=== PATIENT | female | born 1945 ===

== ENCOUNTER 2019-07-12 08:28 | Outpatient (CLI) | payer MEDICARE, OTHER ==
[~2019-07-12 08:28] MED LIST: BUFFERED LIDOCAINE 10 ML SYRINGE ONE
--- NOTE | 2019-07-12 12:48 | Ultrasound Report ---
Reason: LT BREAST MASS Procedure Date: 07/12/2019 Accession Number: [id number] / [id number] Procedure: US - Biopsy Breast Core CPT Code: Final Report FULL RESULT: PROCEDURE: Ultrasound-guided needle biopsy left breast mass. CLINICAL DATA: Targeted mass measuring approximately 1 cm with irregular margins in the 5 o'clock axis of the left breast. Informed consent was obtained. Using standard aseptic technique, both 1% buffered lidocaine and Sensorcaine were injected into the left breast for local anesthesia. A small charlene was made in the skin with a #11 blade. A 12-gauge Veysoft vacuum-assisted device was used to obtain 5 specimens. A specialized biopsy marker clip was placed into the biopsy cavity under ultrasound guidance. The patient was taken to separate mammography machine and a two-view digital mammography was performed to verify the clip placement and any complications. The mammography showed expected clip positioning and postbiopsy changes. The wound was dressed and ice applied. The patient was observed for approximately 15 minutes, then was discharged from diagnostic imaging Department in good condition following instructions on wound care and obtaining biopsy results. The patient is scheduled to receive the biopsy results from the referring physician. The tissue was sent for histologic analysis. IMPRESSION: Ultrasound-guided biopsy of the left breast. AN ADDENDUM WILL BE MADE TO THIS REPORT WHEN PATHOLOGY IS REVIEWED TO ESTABLISH CONCORDANCE.
[2019-07-12] MEDS ORDERED: BUFFERED LIDOCAINE 10 ML SYRINGE IU ONE (14:01)
[2019-07-12] MEDS ORDERED: BUPIVACAINE 0.5%-EPI 1:200000 PF 10 ML VIAL SUBQ ONE (14:01)
== END 2019-07-12 08:29 | disposition home or self-care (01) ==
LOC: DI 08:28
PROVIDERS: ATTEND Surgery
DX: D24.2 Benign neoplasm of left breast (principal)
CPT/HCPCS: 19083

== ENCOUNTER 2020-01-31 07:55 | Outpatient (CLI) | payer MEDICARE, OTHER ==
--- NOTE | 2020-02-28 12:45 | Mammography Report ---
UNILATERAL LEFT DIGITAL DIAGNOSTIC MAMMOGRAM 3D/2D: 01/31/2020 CLINICAL: Patient returns for a 6 month follow up of the left breast. Post biopsy. Comparison is made to exams dated: 06/15/2019 mammogram, 05/07/2018 mammogram, 04/19/2018 mammogram, a nd 02/13/2017 mammogram - [facility]. The tissue of both breasts is heterogeneously dense. This may lower the sensitivity of mammography. There is an irregular equal density mass in the left breast at 4 o'clock in the retroareolar region. This is not significantly changed and correlates with prior ultrasound findings dated 06/15/2019 and the biopsy dated 07/12/2019. There is a biopsy clip associated with the mass. Pathology indicated benign intraductal papilloma. No surgical excision was performed. No other significant masses, calcifications, or other findings are seen in either breast. Stable pos t operative findings in the left breast from prior partial mastectomy. IMPRESSION: INCOMPLETE: NEEDS ADDITIONAL IMAGING EVALUATION The irregular, oblong equal density mass in the left breast is consistent with a biopsy proven papill saira lesion. Further evaluation is recommended by ultrasound as this high risk lesion was not surgica lly excised and currently being followed by imaging surveillance. The patient will be scheduled to re turn for her ultrasound evaluation. This exam was interpreted at Station ID: [id number]. NOTE: For mammograms, a report in lay terms will be sent to the patient. Approximately 15% of breast malignancies will not be visualized mammographically. In the management of a palpable breast mass, a negative mammogram must not discourage biopsy of a clinically suspicious lesion. Electronically Signed By: Teofilo Ayers M.D. aty/:01/31/2020 11:26:50 copy to: CECE ARMENDARIZ copy to: MIKE Snell LEAH, ph: [phone] copy to: DRU HERRERA [place], [facility], ph: [phone], fax: [phone] ACR BI-RADS Category 0: Incomplete 3340F PARENCHYMAL PATTERN: (D) - The breast(s) demonstrate(s) heterogeneously dense fibroglandular parenchy ma. BI-RADS CATEGORY: (0) - 0 Ultrasound [id number] Immediate follow-up LATERALITY: (L)
== END 2020-01-31 07:56 | disposition home or self-care (01) ==
LOC: DI 07:55
PROVIDERS: ATTEND Surgery
DX: N63.23 Unspecified lump in the left breast, lower outer quadrant (principal)
CPT/HCPCS: 77061; 77065; G0279

== ENCOUNTER 2020-02-14 09:17 | Outpatient (CLI) | payer MEDICARE, OTHER ==
--- NOTE | 2020-02-15 10:54 | Ultrasound Report ---
LIMITED ULTRASOUND OF LEFT BREAST: 02/14/2020 CLINICAL: Patient returns today to evaluate a density in the left breast. Comparison is made to exams dated: 01/31/2020 mammogram - [facility], 06/15/2019 ult rasound, 06/15/2019 mammogram, 06/22/2018 specimen, 06/22/2018 localization, and 05/07/2018 ultrasound biopsy - [facility]. Color flow and real-time ultrasound of the left breast 4-5 o'clock region were performed. Alba scal e images of the real-time examination were reviewed. There is a biopsy proven benign 1.1 cm x 8 cm x 1.1 cm oval intraductal mass in the left breast at 5 o'clock anterior depth 3 cm from the nipple. This oval intraductal mass is of mixed echogenicity wit h cystic and punctate echogenic components. Color flow imaging demonstrates that there is an adjacen t, but no internal vascularity. This abnormality is not significantly changed and correlates with m ammography findings. IMPRESSION: PROBABLY BENIGN The 1.1 cm x 8 cm x 1.1 cm oval intraductal mass in the left breast is biopsy proven to be a papillar y lesion and is considered a high risk benign lesion. Excision or imaging surveillance is recommende d. For imaging surveillance, a follow-up left mammogram and an ultrasound in 6 months is recommended to demonstrate stability. Findings and recommendations were conveyed to the patient at time of exam. This exam was interpreted at Station ID: [id number]. Electronically Signed By: Mary eubanks/:02/15/2020 10:40:57 Entry: - 02/15/2020 10:40:57 copy to: CECE ARMENDARIZ copy to: MIKE Snell LEAH, ph: [phone] copy to: DRU HERRERA [place], [facility], ph: [phone], fax: [phone] Ultrasound BI-RADS: 3 Probably benign BI-RADS CATEGORY: (3) - 3 Mammo and US [id number] 6 month follow-up LATERALITY: (L)
== END 2020-02-14 09:18 | disposition home or self-care (01) ==
LOC: DI 09:17
PROVIDERS: ATTEND Surgery
DX: D24.2 Benign neoplasm of left breast (principal)
CPT/HCPCS: 76642

== ENCOUNTER 2020-07-10 08:47 | Outpatient (CLI) | payer MEDICARE, OTHER ==
[2020-07-10] MEDS ORDERED: IOVERSOL 320 100 ML VIAL IVP ONE ×2 (09:03→11:55)
[2020-07-10] MEDS ORDERED: IOVERSOL 320 50 ML VIAL ONE (09:03)
[2020-07-10] MEDS ORDERED: IOVERSOL 320 50 ML VIAL PO ONE (11:55)
--- NOTE | 2020-07-10 17:51 | CT Report ---
PROCEDURE: Abdomen/Pelvis W INDICATIONS: METASTATIC BREAST CANCER STAGING CONTRAST: IV CONTRAST: Optiray 320 ml: 100 PO CONTRAST: Optiray 320 ml50 TECHNIQUE: After the administration of contrast, 5 mm thick sections acquired from the diaphragms to the sym physis. 5 mm thick coronal and sagittal reformats were acquired. For radiation dose reduction, the following was used: automated exposure control, adjustment of mA and/or kV according to patient size . COMPARISON: None. FINDINGS: Image quality: Excellent. ABDOMEN: Lung bases: Lung bases are clear considering reduced inspiratory volume. Heart size is normal. Solid organs: Liver and spleen are normal in size and enhancement. Gallbladder has been previously resected Biliary system is non dilated. Pancreas enhances normally. No adrenal nodules. Kidneys d emonstrate normal size and enhancement, without hydronephrosis. Peritoneum and bowel: Bowel loops demonstrate normal wall thickness and caliber. No free fluid or a ir. Nodes and vessels: No retroperitoneal or mesenteric adenopathy by size criteria. Aorta and inferior vena cava are normal in size. Miscellaneous: No ventral hernias. PELVIS: Genitourinary: Bladder wall thickness is normal. Miscellaneous: No inguinal hernias or adenopathy. Bones: No suspicious bony lesions. No vertebral body compression fractures. IMPRESSION: Prior cholecystectomy. No evidence of metastatic disease. Reviewed by: Tej Romero MD on 07/10/2020 5:49 PM PST Approved by: Tej Romero MD on 07/10/2020 5:49 PM PST Station ID: [id number]
--- NOTE | 2020-07-10 17:57 | CT Report ---
PROCEDURE: CHEST W INDICATIONS: METASTATIC BREAST CANCER STAGING CONTRAST: IV CONTRAST: Optiray 320 ml: 100 PO CONTRAST: *NO PO CONTRAST TECHNIQUE: After the administration of intravenous contrast, 5 mm thick sections acquired from the pulmonary api celso to the posterior costophrenic angles. 7 mm thick coronal MIP reformats were acquired. For radia tion dose reduction, the following was used: automated exposure control, adjustment of mA and/or kV according to patient size. COMPARISON: None. FINDINGS: Image quality: Excellent. Lungs and pleura: No acute air space opacities. No pleural effusions or pneumothorax. Central and peripheral airways are patent and normal in caliber. Mediastinum: Heart size is normal. No pericardial effusion. No mediastinal or hilar adenopathy by size criteria. Thoracic aorta and central pulmonary arteries are normal in size. Esophagus is kiara l in caliber. No hiatal hernia. Bones and chest wall: No suspicious bony lesions. No vertebral body compression fractures. No axil thomas or supraclavicular adenopathy by size criteria. Thyroid gland is not well seen. Note is made o f nodular soft tissue prominence at the lateral left breast, where additional evidence of breast carc inoma is present by what appears to be a set of lumpectomy surgical clips noted best seen centered on CT series 2 image 38. 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 Abdomen: Visualized upper abdominal solid organs appear normal. Upper abdominal bowel loops are nor mal in caliber. IMPRESSION: Nodular masses within the left breast appear present, adjacent to an area of clustered small surgical clips. It is unclear whether the nodular appearance is from "satellite lesions" or possibly related to postoperative change. Breast MRI scanning without and with contrast may be warranted for more accu rate assessment of that area. Alternatively, sonographic follow-up may be warranted. Through the visualized chest and abdomen included on this study no definite distant metastatic diseas e is found. Reviewed by: Tej Romero MD on 07/10/2020 5:55 PM PST Approved by: Tej Romero MD on 07/10/2020 5:55 PM PST Station ID: [id number]
--- NOTE | 2020-07-12 17:01 | Nuclear Medicine Report ---
PROCEDURE: Bone Whole Body INDICATIONS: METASTATIC BREAST CANCER STAGING RADIOPHARMACEUTICAL: 26.1 mCi Tc-99m MDP IV. TECHNIQUE: Delayed whole-body scintigrams were obtained approximately 3-4 hours after intravenous injection of r adiotracer. Anterior and posterior views were acquired from vertex to feet. Additional left and rig ht oblique views of the skull were obtained. COMPARISON: CT chest with contrast, 07/10/[address] abdomen and pelvis with contrast 07/10/2020. FINDINGS: There are foci of increased activity involving the lower thoracic spine (T10, T11 and T12) , left iliac bone, right humeral shaft, suspicious for metastasis. Intensely increased activity is no jessa in the left humeral head and neck. Increased activity at the sternomanubrial junction is likely d egenerative in nature. There are foci of increased activity in the lower cervical spine, thoracic spi ne and lumbar spine, indistinguishable from degenerative changes. Increased periventricular activity in shoulders bilaterally, knees bilaterally, ankles and feet bilaterally are consistent with degenera tive/arthritic changes. IMPRESSION: 1. There are of increased activity in the lower thoracic spine, left iliac bone, and right humeral sh aft, suspicious for osseous metastases. Recommend radiographic correlation. 2. Intense abnormal uptake in the left humeral head and neck may be traumatic in nature. Recommend cl inical and radiographic correlation. 3. Degenerative/arthritic changes as noted. Reviewed by: Santhosh Morel MD on 07/12/2020 4:59 PM PST Approved by: Santhosh Morel MD on 07/12/2020 4:59 PM PST Station ID: [id number]
== END 2020-07-10 08:48 | disposition home or self-care (01) ==
LOC: DI 08:47
PROVIDERS: ATTEND Internal Medicine Hematology & Oncology
DX: C50.919 Malignant neoplasm of unspecified site of unspecified female breast (principal); Z90.49 Acquired absence of other specified parts of digestive tract
CPT/HCPCS: 71260; 74177; Q9967; 78306

== ENCOUNTER 2020-12-04 08:46 | Outpatient (CLI) | payer MEDICARE, OTHER ==
--- NOTE | 2020-12-04 17:19 | Nuclear Medicine Report ---
PROCEDURE: Bone Whole Body INDICATIONS: METASTATIC BREAST CA RADIOPHARMACEUTICAL: 26.7 mCi Tc-99m MDP IV. TECHNIQUE: Delayed whole-body scintigrams were obtained approximately 3-4 hours after intravenous injection of r adiotracer. Anterior and posterior views were acquired from vertex to feet. Additional left and rig ht oblique views of the skull and cervical spine were obtained. COMPARISON: Bone scan, whole body, 07/10/2020. FINDINGS: Foci of increased uptake are again noted involving the lower thoracic spine (T11 and T12), left iliac bone and right humeral shaft, suspicious for metastases. There are foci of increased katrina articular activity involving shoulders bilaterally, left greater than right, knees bilaterally, ankle s and feet bilaterally, consistent with degenerative/arthritic changes. There are foci of increased a ctivity in the lower cervical spine, thoracic spine and lumbar spine, indistinguishable from degenera tive changes. IMPRESSION: Stable bone scan. Foci of increased uptake are again noted involving the lower thoracic spine (T11 and T12), left iliac bone and right humeral shaft, suspicious for metastases. Recommend ra diographic correlation. Reviewed by: Santhosh Morel MD on 12/04/2020 5:18 PM PDT Approved by: Santhosh Morel MD on 12/04/2020 5:18 PM PDT Station ID: [id number]
== END 2020-12-04 08:47 | disposition home or self-care (01) ==
LOC: DI 08:46
PROVIDERS: ATTEND Internal Medicine Hematology & Oncology
DX: R93.7 Abnormal findings on diagnostic imaging of other parts of musculoskeletal system (principal)
CPT/HCPCS: 78306

== ENCOUNTER 2021-01-01 11:01 | Outpatient (CLI) | payer MEDICARE, OTHER ==
--- NOTE | 2021-01-01 16:24 | CONSULTATION NOTE ---
Palliative Care Consultation - Referral Referring Provider: Dolores Garduno PA-C Time of Visit: 11:00 75 minutes Referral setting: [facility] [place] Referral Reason: Hot flashes/Arthalgias/Osteoarthritis/ Met Breast CA - Information Sources Records reviewed: Previous records reviewed History/Review of Systems obtained from: Patient Exam limitations: No limitations - History of Present Illness Brief History of Present Illness: This is a karan 75-year-old woman with recurrent breast cancer, cutaneous and bony mets. She is currently on anastrozole, with severe hot flashes and arthralgias, and Ibrance since 09/13/2020 with noted persistent fatigue. She does have known bony mets, with recent scan showing uptake in lower thoracic spine, left iliac bone, and right humerus noted to be consistent with stable metastatic disease. She is morbidly obese, exacerbating her underlying osteoarthritis issues particularly bilateral knee pain. She has persistent fatigue, experiences multiple rashes, and tries to integrate into her treatment plan supplemental alternative treatments. Patient was originally diagnosed with breast cancer in 2017, treated with lumpectomy, and had declined further radiation, chemo or endocrine therapy at that point in time. She did high-dose vitamin C therapy and mistletoe injections. She was diagnosed with recurrence actually through a cutaneous scalp lesion, by her geological technical officer, then established 07/13 with oncology at [facility]. She also has history of falls, with fractured shoulder on left 2018, and fractured shoulder 06/12 for which she is still receiving physical therapy. Patient presents actually with fairly high symptom burden, most problematic is her hot flashes, she rates them at 9 out of 10. They do occur 2-3 times a day, with severe discomfort and persistence. She has osteoarthritic and overall arthralgias and joint pain, she rates it a 4 out of 10, she has been taking Aleve 1 tab twice daily for several years, has not trialed anything else other than a few topicals. She has in the past benefited from cortisone shots bilaterally in her knees, and still has persistent pain from her broken shoulder on the right. Patient short-term goals are to improve her symptoms particularly hot flashes and pain, as well as integrate dietary changes and weight loss. She does understand the seriousness of her illness, she is very marifer oriented, and finds this helpful as far as coping. Palliative care meeting with patient to assist with pain and symptom management, advanced care planning, and establish rapport today. Medical/Surgical History - Past Medical History Cardiovascular: reports: Hypertension Respiratory: reports: None Neuro: None Endocrine/Autoimmune: reports: None GI: reports: None : reports: Incontinence, Other (herpes) HEENT: reports: Other (tinnitus) Psych: reports: None Musculoskeletal: reports: Osteoarthritis, Fatigue Derm: reports: Other (Met breast cutaneious; candidiasis) MRSA Hx?: No Social History - Living Situation Living arrangement: At home Living Situation: Alone Support System: Patient lives alone, she has multiple friends for support. She does have 4 children, and 6 grandchildren that she stays in contact with through [employer]/social media. She does like to go on road trips, unfortunately her most recent one got canceled.She is retired, she was a library paraprofessional for 21 years. Family History - Family History Family History: Mother: ( at 71), Cancer ( at 84), Father: , Parkinson's Disease (age 65), Brother: , Parkinson's Disease Medications/Allergies - Medications Home Medications: Ambulatory Orders Medication Instructions Recorded Confirmed Anastrozole 1 mg PO DAILY #90 tablet 12/11/20 01/02/21 Acetaminophen [Tylenol] 650 mg PO TID 01/02/21 01/02/21 Allertec 10 mg PO DAILY 01/02/21 Calcium Crb,Cit/D3/Min34/Marjorie 1 tab PO DAILY 01/02/21 01/02/21 [Citracal Plus Bone Density Tab] Cholecalciferol [Vitamin D3] 10,000 units PO DAILY MDD + K 20 01/02/21 01/02/21 mcg Community Mushrooms 2 cap PO DAILY 01/02/21 Magnesium Oxide [Magnesium] 120 mg PO DAILY 01/02/21 01/02/21 Melatonin/Pyridoxine [Melatonin 5 5 mg PO QPM 01/02/21 01/02/21 mg Tablet] Methylsulfonylmethane [MSM] 3 gm PO DAILY 01/02/21 01/02/21 N-Acetyl L-Cysteine 600 mg PO DAILY 01/02/21 Naproxen Sodium [Aleve] 220 mg PO BID 01/02/21 01/02/21 Palbociclib [Ibrance] 125 mg PO DAILY MDD 21 days on 7 01/02/21 01/02/21 off Venlafaxine ER [Effexor ER] 37.5 mg PO DAILY 01/02/21 01/02/21 Zinc Amino Acid Chelate [Zinc 50 mg PO DAILY 01/02/21 01/02/21 Chelated] - Allergies Allergies/Adverse Reactions: Allergies Allergy/AdvReac Type Severity Reaction Status Date / Time iodine Allergy Unknown Verified 10/26/20 09:59 Penicillins Allergy Unknown Verified 10/26/20 09:59 Sulfa (Sulfonamide Allergy Unknown Verified 10/26/20 09:59 Antibiotics) Review of Systems - Constitutional Constitutional: reports: Fatigue, Chills, Night sweats - Eyes Eyes: reports: Irritation, Vision loss - Ears, Nose & Throat Ears, Nose & Throat: reports: Tinnitus, Sore throat, Dry mouth - Cardiovascular Cardiovascular: reports: Edema, Exertional dyspnea, Decr. exercise tolerance. denies: Chest pain - Respiratory Respiratory: denies: SOB at rest - Gastrointestinal Gastrointestinal: reports: Change in bowel habits - Genitourinary Genitourinary: reports: Incontinence - Musculoskeletal Musculoskeletal: reports: Muscle pain, Back pain, Muscle aches, Stiffness, Limited range of motion, Muscle weakness, Joint pain, Joint swelling, Assistive devices (cane) - Integumentary Integumentary: reports: Rash (under pannus), Dryness, Nail changes, Hair changes (thinning) - Neurological Neurological: reports: General weakness, Headache, Numbness (left hand intermittent), Abnormal gait (related to pain in knees) - Psychiatric Psychiatric: denies: Depression, Anxiety - Endocrine Endocrine: denies: Diabetes type 2 - Hematologic/Lymphatic Hematologic/Lymph: denies: Anemia, Recurrent infections - All Other Systems All Other Systems: reports: Reviewed and negative Physical Exam - Vital Signs Pulse Rate: 63 Respiratory Rate: 18 Blood Pressure: 122/70 - Physical Exam General Appearance: positive: Alert, Mild distress (related to pain/hot flashes) Eyes Bilateral: positive: Normal inspection ENT: positive: No signs of dehydration Neck: positive: Trachea midline Cardiovascular: positive: Regular rate & rhythm Respiratory: positive: Breath sounds nml, Diminished in bases Abdomen: positive: Soft, Obese Skin: positive: Other (excoriation under pannus; scarring under breasts) Extremities: positive: Pedal edema (up to knees), Other (ataxic gait related to pain/arthritis) Neurologic/Psychiatric: positive: Oriented x3, Mood/affect nml, Flat affect Palliative Care - POLST Patient has POLST: No Pain: Location (left shoulder/ bilateral knee pain; multiple muscle/joint arthalgias worsened with anastrozole), Severity (4/10) Tiredness/Fatigue: Moderate (4-6) Drowsiness/Sedation: Mild (1-3) Nausea: None Anorexia: None Dyspnea: Mild (1-3) Depression: None Anxiety: None Feelings of wellbeing/Perceived Quality of Life: Poor, Worsening Sleep: Sleeps poorly, Variable sleep pattern Constipation: No Performance Status: Patient's activity is significantly limited by her bilateral knee pain, and high risk for falls. She is managing her ADLs, she is unable to really push herself with activity secondary to her pain. - Palliative Care Discussion: Patient does present with metastatic breast cancer, currently with fairly high symptom burden with her goals to focus on improving quality of life issues. Her belief system is such that she is trying to integrate both supplemental/naturopathic treatments with [facility]. She is trying to stay committed to continuing the anastrozole, but is hoping we can impact her hot flashes and discomfort to better be able to tolerate this. She reports she is without depression or anxiety, this is impacted by her marifer, she takes things as they, and is wanting to stay quite positive. Introduced the concept of advanced care planning, and will continue to move forward with this as we set up rapport and further define her goals. Results - Lab Results Lab results reviewed: Yes Lab and Imaging Results: Reviewed with patient to improve understanding Impression and Recommendations - Palliative Care Impression: This is a 75-year-old woman with recurrent breast cancer, with cutaneous and bony mets, currently on anastrozole and Ibrance. She does have moderate to high symptom burden, superimposed on chronic pain related to her osteoarthritis. Palliative care to provide support for pain and symptom management, advanced care planning, and anticipatory guidance. Recommendations/Counseling Done: 1. Hot flashes. Will initiate venlafaxine 37.5 mg extended release at bedtime, with goal to titrate to effect. Counseling provided regarding side effects, will check in a couple weeks for titration, goal is to decrease the intensity and frequency, has shown some effectiveness but will need some time to trial. Patient verbalizes understanding. 2. Rhinitis. Patient currently on Aller-bethel for her skin issues, having difficulty with dry nose and drainage, recommended nasal saline spray 2 times a day [id number]. 3. Acute on chronic pain. Patient currently on Aleve 220 mg twice daily, has been on this long-term. Patient has benefited from cortisone shots in the past, follow-up with oncologist with question if okay to proceed, received Answer back can proceed. We will go ahead in the meantime just trial some acetaminophen 650 mg 2-3 times a day, in addition to the Aleve. Also recommended topical CBD 2-3 times a day, she does have contact with vocational teacher or if other topical in the same category. We will add pregabalin in future if no improvement, this may also assist with management not only of her pain/arthralgias as well as hot flashes has been effective as the intervention. 4. Morbid obesity. Patient very aware if lost weight would help her knee pain, discussed different programs/apps, does not have access to computer or able to add apps to her phone. Did reach out for [facility] dietitian to meet with patient, she is also interested in anti-inflammatory diet as well as weight loss, recommended Mediterranean diet as a starting point as well as portion control. 5. Metastatic breast cancer. Patient currently on oral cancer agents, she is struggling with side effects, but is hoping to have better control so able better to tolerate. She is hoping for both quantity and quality of life extended given her diagnosis, discussed metastatic breast cancer is often treated long-term and currently she does not have any life-threatening metastatic disease to organs. Patient given her belief system also is integrating alternative treatments, she does report this person works with oncology patients, encouraged to make sure she understands what oral medication she is on to minimize side effects. 6. Excoriation under pannus. Patient does have fluctuating levels of candidiasis and groin, pannus and breast folds. Recommended interwick material for management of moisture and keep fungal count down. She is being treated by her geological technical officer, with triamcinolone and ketoconazole. 7. Advanced care planning. Patient short-term goals to improve her quality of life with diminished pain, improved hot flashes, and better understanding of her current treatment and disease process. We will continue to build rapport and work on advance care planning documents. 76 Including review of chart, labs, supporting documents from PCP and dermatology, [id number] physical exam in counseling for symptom management.minutes
== END 2021-01-01 11:02 | disposition home or self-care (01) ==
LOC: PC 11:01
PROVIDERS: ATTEND Nurse Practitioner Adult Health
DX: Z51.5 Encounter for palliative care (principal); T45.1X5A Adverse effect of antineoplastic and immunosuppressive drugs, initial encounter; R23.2 Flushing; J31.0 Chronic rhinitis; G89.29 Other chronic pain; E66.01 Morbid (severe) obesity due to excess calories; C50.919 Malignant neoplasm of unspecified site of unspecified female breast; C79.51 Secondary malignant neoplasm of bone; C79.2 Secondary malignant neoplasm of skin; S30.811A Abrasion of abdominal wall, initial encounter; Z79.899 Other long term (current) drug therapy
CPT/HCPCS: 99205

== ENCOUNTER 2021-01-25 13:10 | Outpatient (CLI) | payer MEDICARE, OTHER ==
--- NOTE | 2021-01-25 16:49 | CONSULTATION NOTE ---
Palliative Care Follow Up - Referral Referring Provider: Dolores Garduno PA-C Time of Visit: 1310 50 minutes Referral setting: [facility] Referral Reason: Hot flashes/Osteoarthritis/Met Breast CA/Goals of Care - Information Sources Records reviewed: Previous records reviewed History/Review of Systems obtained from: Patient Exam limitations: No limitations - History of Present Illness Update Brief HPI Update: This is a karan 75-year-old woman with recurrent breast cancer, with known cutaneous skull and bony mets. She is currently on as anastrozole, with hot flashes and arthralgias, which have improved with initiation of venlafaxine at 37.5 mg. She continues on Ibrance since 09/13/2020 with persistent fatigue, but continues to improve. She is morbidly obese and has recently experienced an exacerbation of her osteoarthritis issues particularly bilateral knee pain, she did get cortisone injections within the last week with much improvement and has been able to decrease her pain medication by 50% with taking only Aleve 220 mg in a.m. and acetaminophen 1 tab midday. She is feeling like she is doing somewhat better, she feels like she is making progress on her short-term goals, she is hoping for weight loss to improve her overall health and has met with dietitian. She does understand the seriousness of her illness, she is marifer oriented and this helps with her coping. Palliative care continue to provide support for pain and symptom management as well as advanced care planning. Past Medical History: Original diagnosis of breast cancer in 2016, treated with lumpectomy, had declined radiation, chemo or endocrine therapy at that time did high-dose vitamin C and mistletoe injections. Her recurrence was diagnosed with a cutaneous scalp lesion by her boiling house hand, 07/13. History of falls, with fractured shoulder on left 2018 and fractured shoulder 06/12. Hypertension, mi ld incontinence, history of herpes, tinnitus, osteoarthritis, and candidiasis. Social History - Living Situation Living arrangement: At home Living Situation: Alone Medications/Allergies - Medications Home Medications: Ambulatory Orders Medication Instructions Recorded Confirmed Anastrozole 1 mg PO DAILY #90 tablet 12/11/20 01/25/21 Acetaminophen [Tylenol] 650 mg PO DAILY 01/02/21 01/25/21 Allertec 10 mg PO DAILY 01/02/21 01/25/21 Calcium Crb,Cit/D3/Min34/Marjorie 1 tab PO DAILY 01/02/21 01/25/21 [Citracal Plus Bone Density Tab] Cholecalciferol [Vitamin D3] 10,000 units PO DAILY MDD + K 20 01/02/21 01/25/21 mcg Community Mushrooms 2 cap PO DAILY 01/02/21 01/25/21 Magnesium Oxide [Magnesium] 120 mg PO DAILY 01/02/21 01/25/21 Melatonin/Pyridoxine [Melatonin 5 5 mg PO QPM 01/02/21 01/25/21 mg Tablet] Methylsulfonylmethane [MSM] 3 gm PO DAILY 01/02/21 01/25/21 N-Acetyl L-Cysteine 600 mg PO DAILY 01/02/21 01/25/21 Naproxen Sodium [Aleve] 220 mg PO DAILY 01/02/21 01/25/21 Palbociclib [Ibrance] 125 mg PO DAILY MDD 21 days on 7 01/02/21 01/25/21 off Venlafaxine ER [Effexor ER] 37.5 mg PO DAILY 01/02/21 01/25/21 Zinc Amino Acid Chelate [Zinc 50 mg PO DAILY 01/02/21 01/25/21 Chelated] - Allergies Allergies/Adverse Reactions: Allergies Allergy/AdvReac Type Severity Reaction Status Date / Time iodine Allergy Unknown Verified 01/04/21 11:11 Penicillins Allergy Unknown Verified 01/04/21 11:11 Sulfa (Sulfonamide Allergy Unknown Verified 01/04/21 11:11 Antibiotics) Review of Systems - Constitutional Constitutional: reports: Fatigue, Night sweats (improved), Weight stable - Eyes Eyes: reports: Irritation, Vision loss - Ears, Nose & Throat Ears, Nose & Throat: reports: Tinnitus, Dry mouth - Cardiovascular Cardiovascular: reports: Exertional dyspnea, Decr. exercise tolerance. denies: Chest pain - Gastrointestinal Gastrointestinal: reports: Good appetite. denies: Nausea - Genitourinary Genitourinary: reports: Incontinence - Musculoskeletal Musculoskeletal: reports: Muscle pain, Back pain, Muscle aches, Stiffness, Limited range of motion, Muscle weakness, Joint pain, Joint swelling - Integumentary Integumentary: reports: Rash (under pannus fluctuates), Dryness, Nail changes, Hair changes (thinning) - Neurological Neurological: reports: General weakness, Headache, Numbness (left hand intermittent), Abnormal gait (related to pain in knees) - Psychiatric Psychiatric: denies: Depression, Anxiety - Hematologic/Lymphatic Hematologic/Lymph: denies: Anemia, Recurrent infections - All Other Systems All Other Systems: reports: Reviewed and negative Physical Exam - Physical Exam General Appearance: positive: Alert Eyes Bilateral: positive: Normal inspection ENT: positive: No signs of dehydration Neck: positive: Trachea midline Cardiovascular: positive: Regular rate & rhythm Respiratory: positive: Breath sounds nml, Diminished in bases Abdomen: positive: Soft, Obese Extremities: positive: Other (ataxic gait related to pain/arthritis) Neurologic/Psychiatric: positive: Oriented x3, Mood/affect nml, Flat affect Palliative Care - POLST Patient has POLST: Yes POLST Status: DNR (requested bring in to review and update) Pain: Pain improved, Severity (3/10 bilateral knees) Tiredness/Fatigue: Moderate (4-6) Drowsiness/Sedation: None Anorexia: None Dyspnea: Mild (1-3) Depression: None Anxiety: None Feelings of wellbeing/Perceived Quality of Life: Good, Acceptable, Improved Sleep: Sleep improved Constipation: Yes, Managed Performance Status: Patient with improved ambulatory status, with bilateral knee injections. She is able to ambulate with a good out the pain. She is able to attend her ADLs. She does need to pace her activity related to managing her fatigue. - Palliative Care Discussion: Patient is feeling better overall, is pleased with the improvement of her hot flashes. She is also encouraged with improvement of her knee pain. She is planning for family reunion this summer in February, is looking forward to this. Clay trinidad denies being concerned or worried, did answer questions regarding her metastatic breast cancer as best we knew. She is getting a CT scan today. She will be meeting with oncology next week. She is quite marifer-based, does not want to get anxious for "nothing". She reports she does have some advance care planning documents, including a POLST with DNR. It has been several years since this is been updated, requested that she bring it in and we can review and update with next visit. Results - Lab Results Lab results reviewed: Yes Lab and Imaging Results: Reviewed with patient per request. Impression and Recommendations - Palliative Care Impression: This is a karan 75-year-old woman with recurrent breast cancer, with cutaneous and bony mets currently on anastrozole and Ibrance. She has had improved symptom burden, chronic pain related to her osteoarthritis is improved. Palliative care to provide support for pain and symptom management, advanced care planning and anticipatory guidance. Recommendations/Counseling Done: 1. Hot flashes. Patient has done well on venlafaxine 37.5 mg extended release at bedtime, have spoken to her twice regarding ability to increase for further effect. She reports it has improved by 50%. At this point in time she would like to wait prior to further titration. 2. Acute on chronic pain. Patient did get her cortisone shots with much improvement of her pain, has been able to decrease her pain medications to Aleve 1 tab in the a.m., and when dosing of acetaminophen midday. She is able to ambulate without cane, and is pleased with her progress. 3. Morbid obesity. Patient has expressed willingness and goals to lose weight, she did meet with a dietitian. She has not initiated any dietary changes yet, but was encouraged to continue with her plan. 4. Metastatic breast cancer. Patient currently on oral agents, does feel like she is settling in and better able to tolerate. She is continuing to integrate alternative treatments as well, will continue to monitor through oncology. 7. Advanced care planning. Patient does have a POLST with DNR, she has not sure what else is included on this, recommended she bring in and we revisit as well as her DPOA and healthcare directives. Counseling provided regarding hoping for the best, particularly in the context of her limited disease to bony mets and cutaneous, she does have follow-up with dermatology as well. We will plan to see her with next visit, or she can call for as needed visits as well. 60 minutes total with review of oncology notes, labs, [id number] with physical exam and counseling as well as anticipatory guidance.
== END 2021-01-25 13:11 | disposition home or self-care (01) ==
LOC: PC 13:10
PROVIDERS: ATTEND Nurse Practitioner Adult Health
DX: Z51.5 Encounter for palliative care (principal); M25.50 Pain in unspecified joint; T45.1X5A Adverse effect of antineoplastic and immunosuppressive drugs, initial encounter; R23.2 Flushing; E66.01 Morbid (severe) obesity due to excess calories; C50.919 Malignant neoplasm of unspecified site of unspecified female breast; C79.51 Secondary malignant neoplasm of bone; M19.91 Primary osteoarthritis, unspecified site; C79.2 Secondary malignant neoplasm of skin; Z66 Do not resuscitate
CPT/HCPCS: 99215

== ENCOUNTER 2021-04-26 09:15 | Outpatient (CLI) | payer MEDICARE, OTHER ==
--- NOTE | 2021-04-26 13:07 | CONSULTATION NOTE ---
Palliative Care Follow Up - Referral Referring Provider: Dolores Garduno PA-C Time of Visit: 0915 45 minutes Referral setting[place] [facility] [place] Reason: Anxiety/Arthalgias/Met Breast CA with bones - Information Sources Records reviewed: Previous records reviewed History/Review of Systems obtained from: Patient Exam limitations: No limitations (though does describe brain fog) - History of Present Illness Update Brief HPI Update: This is a karan 75-year-old woman with recurrent breast cancer, with known cutaneous skull and bone mets. She recently had CT scans, that showed stable disease. Patient reports is having increased toxicities from treatment, with worsening fatigue, arthralgias, and brain fog. She feels at this point it is tolerable, but does find it impacting her quality of life. Patient had discontinued venlafaxine, just because she does not "like pills". The patient had a notable response originally for her report both with her mood and with her hot flashes. She has had return of sweats, chills and feeling cold. She does not want to trial again. Her biggest issue is her arthralgias, most of her pain is intense in her knees bilaterally. She also has discomfort in her shoulders, patient has had fractures in both. She rates her pain a 6 out of 10, worse with weightbearing and walking. She has been more sedentary with her increasing pain. She does feel like her quality of life is significantly impacted, particularly by the fatigue. She does find herself resting with any kind of activity, and easily gets breathless. She did have her family reunion, had all 4 kids visiting, found this really quite karan. She forgot to bring in her POLST. She has designated her daughter Jailene Conti [phone] as her DPOA for medical decision making if needed. Patient is quite marifer oriented, this helps with her coping. She does understand the seriousness of her illness, it is hoping for both quality and quantity of life. Past Medical History: Original diagnosis of breast cancer 2016, treated with lumpectomy, declined radiation/chemo/endocrine therapy at that time. Did natural pathic approach with high-dose vitamin C and mistletoe injections. Her recurrence was diagnosed with a cutaneous scalp lesion by senior network security architect 07/13. She has history of falls with fracture on the left 2018 shoulder and fracture on the right 06/12 shoulder. Hypertension, mild incontinence, history of herpes, tinnitus, osteoarthritis, and candidiasis with skin rashes. Social History - Living Situation Living arrangement: At home Living Situation: Alone Support System: Patient lives at home alone, her daughter lives in [place]. She has supportive friends in the community. She is a retired personal injury litigation paralegal for 21 years. Medications/Allergies - Medications Home Medications: Ambulatory Orders Medication Instructions Recorded Confirmed Anastrozole 1 mg PO DAILY #90 tablet 12/11/20 04/26/21 Acetaminophen [Tylenol] 650 mg PO DAILY 01/02/21 04/26/21 Allertec 10 mg PO UD 01/02/21 04/26/21 Calcium Crb,Cit/D3/Min34/Marjorie 1 tab PO DAILY 01/02/21 04/26/21 [Citracal Plus Bone Density Tab] Cholecalciferol [Vitamin D3] 10,000 units PO DAILY MDD + K 01/02/21 04/26/21 mcg ClearStream Mushrooms 2 cap PO DAILY 01/02/21 04/26/21 Magnesium Oxide [Magnesium] 120 mg PO DAILY 01/02/21 04/26/21 Melatonin/Pyridoxine [Melatonin 5 5 mg PO QPM 01/02/21 04/26/21 mg Tablet] Methylsulfonylmethane [MSM] 3 gm PO DAILY 01/02/21 04/26/21 N-Acetyl L-Cysteine 600 mg PO DAILY 01/02/21 04/26/21 Naproxen Sodium [Aleve] 220 mg PO DAILY 01/02/21 04/26/21 Palbociclib [Ibrance] 125 mg PO DAILY MDD 21 days on 7 01/02/21 04/26/21 off Zinc Amino Acid Chelate [Zinc 50 mg PO DAILY 01/02/21 04/26/21 Chelated] - Allergies Allergies/Adverse Reactions: Allergies Allergy/AdvReac Type Severity Reaction Status Date / Time iodine Allergy Unknown Verified 03/29/21 15:50 Penicillins Allergy Unknown Verified 03/29/21 15:50 Sulfa (Sulfonamide Allergy Unknown Verified 03/29/21 15:50 Antibiotics) Review of Systems - Constitutional Constitutional: reports: Fatigue (worsening; very incapacitating last few days of cycle), Night sweats (recurrent with discontinuation of venlafaxine), Weight gain - Eyes Eyes: reports: Irritation, Vision loss - Ears, Nose & Throat Ears, Nose & Throat: reports: Tinnitus, Dry mouth - Cardiovascular Cardiovascular: reports: Exertional dyspnea, Decr. exercise tolerance. denies: Chest pain - Respiratory Respiratory: reports: SOB at rest (4/10), SOB with exertion - Gastrointestinal Gastrointestinal: reports: Constipation, Good appetite. denies: Nausea - Genitourinary Genitourinary: reports: Incontinence - Musculoskeletal Musculoskeletal: reports: Muscle pain, Back pain, Muscle aches, Stiffness, Limited range of motion, Muscle weakness, Joint pain, Joint swelling - Integumentary Integumentary: reports: Rash (under pannus and breast fluctuates), Dryness, Nail changes, Hair changes (thinning) - Neurological Neurological: reports: General weakness, Headache, Numbness (left hand intermittent), Abnormal gait (related to pain in knees) - All Other Systems All Other Systems: reports: Reviewed and negative Physical Exam - Physical Exam General Appearance: positive: Alert Eyes Bilateral: positive: Normal inspection ENT: positive: No signs of dehydration Neck: positive: Trachea midline Cardiovascular: positive: Regular rate & rhythm Respiratory: positive: Breath sounds nml, Diminished in bases Abdomen: positive: Soft, Obese Skin: positive: Pallor, Dryness Extremities: positive: Other (ataxic gait related to pain/arthritis) Neurologic/Psychiatric: positive: Oriented x3, Mood/affect nml, Flat affect Palliative Care - POLST Patient has POLST: No Pain: Pain worsening, Location (bilateral knee pain; bilateral shoulder and back pain;) Tiredness/Fatigue: Moderate (4-6) Drowsiness/Sedation: Moderate (4-6) Nausea: Mild (1-3) Anorexia: None Dyspnea: Moderate (4-6) Depression: None Anxiety: None Feelings of wellbeing/Perceived Quality of Life: Fair, Worsening Sleep: Variable sleep pattern Constipation: Managed Performance Status: Patient's functional status is impacted significantly both by her fatigue as well as her pain. She is managing her ADLs. She was quite pleased her children on her visit helped her with some of her reagent tender and maintenance. - Palliative Care Discussion: Patient is describing brain fog, finds this quite frustrating. With name finding. She feels overall her quality of life is declining, attributes this both to her pain and fatigue. She is still trying to do things that bring her jailene, road trips, she had a family reunion, spending time with friends. She had forgotten to bring her POLST, did provide her a new form but wanted to discuss with her daughter first before we complete. Defies her daughter as her medical DURABLE POWER OF PASTRY BAKER, has not furnished me paperwork with this yet. Will provide her if needed. Patient does have a "vial of life" in her fridge. She has her friend Lori who helps her with her appointments, to be able to hear the information as well. She operates from a place of marifer, and accepting what is. She also though has trouble taking pills in the context of not consistent with her healthcare belief model. She does have multiple supplements, recommended she follow-up with her chief passenger ship steward/stewardess to review particularly in the context of her worsening pain. Results - Lab Results Lab results reviewed: Yes Impression and Recommendations - Palliative Care Impression: This is a karan 75-year-old woman with recurrent breast cancer, with cutaneous and bony mets, currently on anastrozole and Ibrance. She continues with chronic pain related to her osteoarthritis, as well as worsening arthralgias attributed most likely to side effects of her medication. She is also experiencing cumulative toxicities of fatigue, and what she describes as "brain fog". Initiated conversation in follow-up for advanced care planning, introduced POLST. Palliative care to meet with patient with next MD visit, to follow-up on advanced care planning and pain management. Recommendations/Counseling Done: 1. Arthralgias. Patient currently using intermittent acetaminophen and Aleve. Patient interested in more natural supplements, does not want any opioid pain reliever. Discussed topicals including Salonpas 4%, Biofreeze, and instructions on patient instructed to call if pain relief not acceptable, and can introduce low dose opioid for relief to improve quality of life. 2. Fatigue. This is multifactorial, patient with worsening fatigue most likely attributed to her cumulative toxicities of her Ibrance. Patient is staying hydrated, limited activity though given her pain and mobility issues, is trying to pace herself and balance her pain and activity. 3. Advanced care planning. Introduced the POLST, she she does have one filled out at home, forgot to bring in. Will also need to get a copy of her DPOA for her daughter Jailene. Unclear if needs further documentation. Forms provided with brief explanation, will follow up at next visit. 45 minutes with review of oncology records, labs, scans, [id number] for counseling for pain and symptom management, and advanced care planning.
== END 2021-04-26 09:16 | disposition home or self-care (01) ==
LOC: PC 09:15
PROVIDERS: ATTEND Nurse Practitioner Adult Health
DX: Z51.5 Encounter for palliative care (principal); C50.919 Malignant neoplasm of unspecified site of unspecified female breast; C79.51 Secondary malignant neoplasm of bone; F41.9 Anxiety disorder, unspecified; M25.50 Pain in unspecified joint; R32 Unspecified urinary incontinence; Z79.899 Other long term (current) drug therapy; R53.83 Other fatigue; Z91.81 History of falling
CPT/HCPCS: 99215

== ENCOUNTER 2021-05-24 15:02 | Outpatient (CLI) | payer MEDICARE, OTHER | END 2021-05-24 15:03 | disposition home or self-care (01) | LOC: PC 15:02 | PROVIDERS: ATTEND Nurse Practitioner Adult Health | DX: Z51.5 Encounter for palliative care (principal); M17.0 Bilateral primary osteoarthritis of knee; G89.29 Other chronic pain; T45.1X5A Adverse effect of antineoplastic and immunosuppressive drugs, initial encounter; R53.83 Other fatigue; C50.919 Malignant neoplasm of unspecified site of unspecified female breast; C79.51 Secondary malignant neoplasm of bone; C79.2 Secondary malignant neoplasm of skin; Z79.899 Other long term (current) drug therapy; Z66 Do not resuscitate | CPT/HCPCS: 99215 ==

== ENCOUNTER 2021-06-19 08:48 | Outpatient (CLI) | payer MEDICARE, OTHER ==
[2021-06-19 09:29] LABS: BASOPHILS # (AUTO) 0.1 10^3/uL (0.0-0.1); BASOPHILS % (AUTO) 1.6 %; EOSINOPHILS % (AUTO) 1.1 %; HCT - HEMATOCRIT 40.5 % (37.0-47.0); HGB - HEMOGLOBIN 13.2 g/dL (12.0-16.0); LYMPHOCYTES # (AUTO) 1.1 10^3/uL (1.5-3.5); LYMPHOCYTES % (AUTO) 30.2 %; MEAN CORPUSCULAR HEMOGLOBIN 32.8 pg (27.0-31.0); MEAN CORPUSCULAR HGB CONC 32.6 g/dL (32.0-36.0); MEAN CORPUSCULAR VOLUME 100.7 fL (81.0-99.0); MEAN PLATELET VOLUME 10.1 fL (7.9-10.8); MONOCYTES # (AUTO) 0.2 10^3/uL (0.0-1.0); MONOCYTES % (AUTO) 4.1 %; NEUTROPHILS # (AUTO) 2.3 10^3/uL (1.5-6.6); NEUTROPHILS % (AUTO) 62.5 %; PLT - PLATELET COUNT 163 10^3/uL (130-450); RED BLOOD COUNT 4.02 10^6/uL (4.20-5.40); RED CELL DISTRIBUTION WIDTH 14.5 % (12.0-15.0); WHITE BLOOD COUNT 3.7 x10^3/uL (4.8-10.8)
[2021-06-19 09:46] LABS: ALBUMIN 3.8 g/dL (3.2-5.5); ALBUMIN/GLOBULIN RATIO 1.4 (1.0-2.2); BILIRUBIN,DIRECT 0.1 mg/dL (0.1-0.5); BILIRUBIN,INDIRECT 0.7 mg/dL; BILIRUBIN,TOTAL 0.8 mg/dL (0.2-1.0); CALCIUM 8.6 mg/dL (8.5-10.3); CREATININE 0.7 mg/dL (0.4-1.0); POTASSIUM 3.8 mmol/L (3.5-5.0); TOTAL PROTEIN 6.6 g/dL (6.7-8.2)
--- NOTE | 2021-06-27 10:58 | Nuclear Medicine Report ---
PROCEDURE: Bone Whole Body INDICATIONS: METASTATIC BREAST CA RADIOPHARMACEUTICAL: 23.6 mCi Tc-99m MDP IV. TECHNIQUE: Delayed whole-body scintigrams were obtained approximately 3-4 hours after intravenous injection of r adiotracer. Anterior and posterior views were acquired from vertex to feet. Additional left and rig ht oblique views of the skull and cervical spine were obtained. COMPARISON: Whole-body bone scan, 12/04/2020 and 07/10/2020. CT chest with contrast, 04/19/2021. CT abd omen pelvis with contrast 04/19/2021. FINDINGS: There is a focus of increased uptake in right side of T12, correlating with a sclerotic vandana ne lesion seen on the comparison CT, consistent with osseous metastasis. Low level increased uptake i s seen in the left T11-T12 area, correlating with a large degenerative osteophyte seen on the compari son CT, compatible with degenerative change. Mildly increase activity in the left iliac bone correlat es with a sclerotic lesion seen on the comparison CT, consistent with metastasis. Again noted is foc al increased activity in the right humeral shaft, highly suspicious for metastases. Overall, suspicio us bony lesions are unchanged. There are foci of increased periarticular activity involving shoulders bilaterally, knees bilaterally , ankles and feet bilaterally, consistent with degenerative/arthritic changes. Mild scoliosis in lumb ar spine. There are foci of increased activity in the lower cervical spine, thoracic spine and lumbar spine, indistinguishable from degenerative changes. IMPRESSION: Stable bone scan. There are persistent bony lesions involving the T12, left iliac bone an d right humeral shaft, compatible with metastases. Reviewed by: Santhosh Morel MD on 06/27/2021 10:57 AM PDT Approved by: Santhosh Morel MD on 06/27/2021 10:57 AM PDT Station ID: [id number]
== END 2021-06-19 08:49 | disposition home or self-care (01) ==
LOC: DI 08:48
PROVIDERS: ATTEND Internal Medicine Hematology & Oncology
DX: C79.51 Secondary malignant neoplasm of bone (principal); C50.912 Malignant neoplasm of unspecified site of left female breast; N95.1 Menopausal and female climacteric states; M19.91 Primary osteoarthritis, unspecified site; R93.7 Abnormal findings on diagnostic imaging of other parts of musculoskeletal system
CPT/HCPCS: 36415; 78306; 80053; 82247; 82248; 85025; A9503

== ENCOUNTER 2021-08-08 14:36 | Outpatient (CLI) | payer MEDICARE, OTHER ==
--- NOTE | 2021-08-08 17:29 | Ultrasound Report ---
PROCEDURE: Retroperitoneal INDICATIONS: KIDNEY MASS TECHNIQUE: Real-time scanning was performed of the retroperitoneal organs, with image documentation. COMPARISON: CT of the abdomen dated 07/12/2021 FINDINGS: Kidneys: Kidneys are normal in size. Right kidney measures 12.5 cm long; left kidney measures 11.3 cm long. Right renal cortical thickness is 1.29 cm; left renal cortical thickness is 1.33 cm. No so lid masses, hydronephrosis, or nephrolithiasis. A right renal mass in the medial midpole measures 20 .4 x 2.2 x 3.1 cm and demonstrates vascularity. A right parapelvic cyst measures 1.6 x 1.2 x 1.1 cm. Multiple left parapelvic cysts are seen with the largest measuring 2.1 x 1.4 x 1.3 cm. Bladder: Prevoid volume is 160 cc's. Post void volume is 0 cc. Bilateral ureteral jets are present. IMPRESSION: Possible solid mass described on prior CT on 07/12/2021 is confirmed with ultrasound an d demonstrates peripheral vascularity. Findings are highly suspicious for renal neoplasm. Given confi rmatory findings with ultrasound, consider renal MRI. Reviewed by: Cam Solano on 08/08/2021 5:28 PM PST Approved by: Cam Solano on 08/08/2021 5:28 PM PST Station ID: [id number]
== END 2021-08-08 14:37 | disposition home or self-care (01) ==
LOC: DI 14:36
PROVIDERS: ATTEND Internal Medicine Hematology & Oncology
DX: C50.912 Malignant neoplasm of unspecified site of left female breast (principal); C79.2 Secondary malignant neoplasm of skin; C79.51 Secondary malignant neoplasm of bone; N28.89 Other specified disorders of kidney and ureter

== ENCOUNTER 2021-08-26 13:00 | Outpatient (CLI) | payer MEDICARE, OTHER ==
--- NOTE | 2021-08-26 17:25 | MRI Report ---
PROCEDURE: Abdomen W/WO INDICATIONS: HX BREAST CA, ABN US CONTRAST: IV CONTRAST: Gadavist ml: 11 TECHNIQUE: Coronal ultra fast SE, axial 2D spoiled GE in- and [id number]; axial breath-hold T2 fast SE. Dynam ic axial ultra fast GE during the administration of contrast; post-contrast coronal ultra fast GE or 2D spoiled GE with fat saturation from the hepatic dome to the iliac crests. Optional diffusion weig hted imaging and ADC may be performed. COMPARISON: Ultrasound 08/08/[address] abdomen pelvis 07/12/2021, and 07/10/2020 FINDINGS: Image quality: Adequate, however there is motion on most sequences.. Lung bases: No basal pleural effusions. Heart size is normal. Solid organs: Mild signal drop in the liver on T1 out of phase imaging. Liver and spleen are normal in size and enhancement. Gallbladder is absent. Biliary system is non dilated. Pancreas is normal in morphology. No adrenal nodules. 2.6 x 2.6 x 2.7 cm heterogeneous encapsulated corticomedullary mass arises medially in the midpole of the right kidney and demonstrates arterial enhancement without washout. There are simple parapelvic cysts scattered elsewhere in the collecting system of each kidney. No hydronephrosis. Nodes and vessels: No retroperitoneal or mesenteric adenopathy by size criteria. Aorta and inferior vena cava are normal in size. Bowel and peritoneum: Unenhanced bowel loops are normal in caliber. No free fluid. Bones and soft tissues: No ventral hernias. There is a rounded 2.3 cm vertebral body lesion with T1 and T2 hypointensity in T12. It demonstrates enhancement postcontrast IMPRESSION: 1. 2.7 cm heterogeneous enhancing renal lesion suspicious for renal cell carcinoma. Given its indolen t course, oncocytoma is also possible. Metastatic disease much less likely given lack of significant progression. Urology consult is recommended. 2. No definite collecting system involvement or adenopathy. 3. Redemonstrated, enhancing sclerotic bone lesion in T12. This is new since the CT 07/10/2020. This is consistent with metastatic disease, confirmed with recent bone scan, and may be secondary to breas t cancer, less likely metastatic renal cell carcinoma. 4. Mild hepatic steatosis. Reviewed by: Mary Quijano MD on 08/26/2021 5:24 PM PST Approved by: Mary Quijano MD on 08/26/2021 5:24 PM [facility] Station ID: [id number]
[2021-08-27] MEDS ORDERED: GADOBUTROL 15 MMOL/15 ML VIAL IVP ONE (07:55)
== END 2021-08-26 13:01 | disposition home or self-care (01) ==
LOC: DI 13:00
PROVIDERS: ATTEND Internal Medicine Hematology & Oncology
DX: N28.89 Other specified disorders of kidney and ureter (principal); M89.9 Disorder of bone, unspecified; K76.0 Fatty (change of) liver, not elsewhere classified; C50.919 Malignant neoplasm of unspecified site of unspecified female breast
CPT/HCPCS: 74183; A9585

== ENCOUNTER 2021-09-06 14:06 | Outpatient (CLI) | payer MEDICARE, OTHER ==
--- NOTE | 2021-09-06 20:52 | CONSULTATION NOTE ---
Palliative Care Follow Up - Referral Referring Provider: Dolores Garduno PA-C Time of Visit: 1230 45 minutes Referral setting: MAC Referral Reason: Met Breast CA/Bilat knee pain/anxiety - Information Sources Records reviewed: Previous records reviewed History/Review of Systems obtained from: Patient, Friend (friend Lori who assists with appointments present) Exam limitations: Clinical condition (mild STM) - History of Present Illness Update Brief HPI Update: This is a 76-year-old woman with recurrent metastatic breast cancer, known cutaneous metastases, and bony mets involving the left iliac, right humeral, T11 and T12. She is currently on Ibrance and anastrozole. She has been off Ibrance since 08/18 in preparation for her knee surgery, unfortunately this may be delayed secondary to the increase in COVID numbers. Unfortunately in her scanning, they found a right kidney mass on the CT, it was a 2.6 cm mass, with follow-up ultrasound and urgent referral to urology. Pending plan regarding this. Patient's biggest quality of life issue has been her bilateral knee pain, she is doing very well in preparation for her surgery. She has lost 17 pounds, was 237.6 as of Thursday. She is going to get her left knee done first, has a plan for this, with friends staying for a couple nights, and then her son and friend checking on her regularly. She has been doing rehab, and ambulating 5-7 times a day of 8 minutes. She is feeling quite positive overall, she does use 2 canes for balance and intermittently with a walker. She reports her fatigue is better off of the Ibrance, so is feeling pretty positive overall though anxious about pending surgery being delayed. She has been using the hydrocodone 5 mg / 325 mg anywhere from 1/2-1 tab up to 3 times daily with good response. She is currently off some of her supplements pending surgery. She is not having trouble with constipation nor sedation. She has not had any further recurrent UTI symptoms. Patient continues with a karan attitude, she has a strong marifer, and continues to move forward with her plans even if they are delayed for knee surgeries. Past Medical History: Original breast cancer 2017, to lumpectomy, declined radiation/chemo/endocrine at the time. Did naturopathic approach with high-dose vitamin C and mistletoe injections. Recurrence of diagnosis was with Cutaneous scalp lesion 2017. She does have a history of falls with fracture of left shoulder 2018 and fracture of right shoulder 06/12. Social History - Living Situation Living arrangement: At home Living Situation: Alone Support System: Patient lives alone in [place], she does have multilevel house but is able to stay on a flat level. She has 4 children, she has a new grandbaby expected in September, is hoping to get well enough to travel again. She is retired. Educated for 21 years, her marifer and marifer community are very important to her. She has many supportive friends. Medications/Allergies - Medications Home Medications: Ambulatory Orders Medication Instructions Recorded Confirmed Anastrozole 1 mg PO DAILY #90 tablet 12/11/20 09/06/21 Acetaminophen [Tylenol] 650 mg PO Q6HR PRN 01/02/21 09/06/21 Allertec 10 mg PO UD 01/02/21 09/06/21 Calcium Crb,Cit/D3/Min34/Marjorie 1 tab PO DAILY 01/02/21 09/06/21 [Citracal Plus Bone Density Tab] Cholecalciferol [Vitamin D3] 10,000 units PO DAILY MDD + K 20 01/02/21 09/06/21 mcg Community Mushrooms 2 cap PO DAILY MDD hold for surgery 01/02/21 09/06/21 Magnesium Oxide [Magnesium] 120 mg PO DAILY 01/02/21 09/06/21 Melatonin/Pyridoxine [Melatonin 5 5 mg PO QPM 01/02/21 09/06/21 mg Tablet] Methylsulfonylmethane [MSM] 3 gm PO DAILY MDD hold for surgery 01/02/21 09/06/21 N-Acetyl L-Cysteine 600 mg PO DAILY MDD hold for 01/02/21 09/06/21 surgery Naproxen Sodium [Aleve] 220 mg PO DAILY 01/02/21 09/06/21 Palbociclib [Ibrance] 125 mg PO DAILY MDD HOLD for 01/02/21 09/06/21 surgery Zinc Amino Acid Chelate [Zinc 50 mg PO DAILY 01/02/21 09/06/21 Chelated] HYDROcod/ACETAM 5/325 [[place] 5/325] 1 tab PO TID PRN 09/06/21 09/06/21 - Allergies Allergies/Adverse Reactions: Allergies Allergy/AdvReac Type Severity Reaction Status Date / Time iodine Allergy Unknown Verified 03/29/21 15:50 Penicillins Allergy Unknown Verified 03/29/21 15:50 Sulfa (Sulfonamide Allergy Unknown Verified 03/29/21 15:50 Antibiotics) Review of Systems - Constitutional Constitutional: reports: Fatigue, Night sweats, Weight loss (17 pounds intentionally) - Eyes Eyes: reports: Irritation, Vision loss - Ears, Nose & Throat Ears, Nose & Throat: reports: Tinnitus, Dry mouth - Cardiovascular Cardiovascular: reports: Edema (wears compression stockings), Exertional dyspnea, Decr. exercise tolerance. denies: Chest pain - Respiratory Respiratory: reports: SOB at rest (at times), SOB with exertion - Gastrointestinal Gastrointestinal: reports: Good appetite. denies: Constipation (managing with prunes) - Genitourinary Genitourinary: reports: Incontinence - Musculoskeletal Musculoskeletal: reports: Muscle pain, Back pain, Muscle aches, Stiffness, Limited range of motion, Muscle weakness, Joint pain, Joint swelling - Integumentary Integumentary: reports: Rash (under pannus and breast fluctuates), Dryness, Nail changes, Hair changes (thinning) - Neurological Neurological: reports: General weakness, Headache, Numbness (left hand intermittent), Abnormal gait (using canes; notable improvement with exercises in prep for surgery) - Psychiatric Psychiatric: reports: Anxiety (only mild with possible delay of surgery). denies: Depression - Hematologic/Lymphatic Hematologic/Lymph: denies: Anemia, Recurrent infections (no further UTIs since 05/14) - All Other Systems All Other Systems: reports: Reviewed and negative Physical Exam - Physical Exam General Appearance: positive: No acute distress, Alert Eyes Bilateral: positive: Normal inspection ENT: positive: No signs of dehydration (patient doing well with fluids intake with prep for pending surgery;) Neck: positive: Trachea midline Respiratory: positive: No respiratory distress Abdomen: positive: Soft, Obese Skin: positive: Pallor, Dryness, Other (hair thinning but still sign. amount; had "thick" hair to start) Extremities: positive: Pedal edema (wearing compression hose; appears improved) Neurologic/Psychiatric: positive: Oriented x3, Mood/affect nml Palliative Care - POLST Patient has POLST: Yes POLST Status: DNR (completed last visit), Selective Treatment Pain: Pain worsening, Location (bilateral knee pain; using hydrocodone 5/325 mg 1/2 -1 tab up to TID depending on activity with good results) Tiredness/Fatigue: Mild (1-3) (improved off ibrance) Drowsiness/Sedation: None Nausea: None Anorexia: None Dyspnea: Mild (1-3) Depression: None Anxiety: Mild (1-3) Feelings of wellbeing/Perceived Quality of Life: Good, Acceptable, Improved Sleep: Sleep improved, Variable sleep pattern Constipation: No Performance Status: Patient's functional status has actually has improved with her prehab for her surgery. She has lost weight, is moving better, and is intentionally walking several times a day. Even if surgery is delayed, is planning to continue her program. - Palliative Care Discussion: We did complete her POLST with DN AR/allow natural and selective treatments last time. At this point in time her goals are to continue to improve her quality of life, which includes moving forward with her surgeries for her knees. She does have a pending surgery related to her renal mass, unclear how this impacts her ultimate goals or prognosis, will continue to follow. Patient continues to wean on her marifer, despite her surgeries may be delayed secondary to COVID spike in numbers. She does have good community support, and will continue to work on improving her functional status and losing weight. She has in a very good mood and proud of her accomplishments. Results - Lab Results Lab results reviewed: Yes Impression and Recommendations - Palliative Care Impression: This is a karan 76-year-old woman with recurrent breast cancer, with cutaneous and bony mets. She is currently on anastrozole, Ibrance on hold for pending orthopedic surgeries. She is moving forward for getting both her knees done, with pending surgeries most likely delayed. She continues to experience acute on chronic pain secondary to her knees, but is prepping for surgery with good lifestyle changes of weight loss and exercise. Palliative care continue to meet with patient for symptom management and anticipatory guidance. Recommendations/Counseling Done: 1. Acute on chronic pain. Patient with bilateral osteoarthritis, she has received relief with hydrocodone 5 mg / 325 mg acetaminophen, though she was somewhat reticent to use. She is finding this very effective, is using a half tab to full tab up to 3 times a day depending on exacerbation of pain and activity. She has not exhibiting any signs or symptoms of side effects. She is quite pleased she has been forward getting her knees done. 2.Kidney mass. Will request records from Dr. Ansari for pending plans. 3. Bilateral osteoarthritis. Patient is in a karan job and weight loss, is continuing to work on portion control and pacing herself. She feels that the weight loss has impacted her knee pain positively. She is continuing with rehab as well, positive reinforcement given. Counseling regarding questions week regarding home health physical therapy versus outpatient, did discuss that bandages are modifications to her current environment, instruction regarding fall recovery, and given multiple steps into her home a chance to adjust to acute pain which will continue to improve. Patient will contact me if surgery is delayed, if needs refill on medication. 4. Advanced care planning. Patient does have POLST in place, with DN AR/allow natural and selective treatments. Patient continues with treatment for her metastatic breast cancer, now with pending concerns for renal mass and diagnosis, as well ongoing chronic health problems. Patient is dependent on her marifer, does not present with any depression or anxiety, questions addressed regarding goals of care. 45 minutes. Review of records, labs, scans, coordination of care with oncologist. [id number] and counseling regarding pain and symptom management, psychosocial support and anticipatory guidance in the context of pending surgeries
== END 2021-09-06 14:07 | disposition home or self-care (01) ==
LOC: PC 14:06
PROVIDERS: ATTEND Nurse Practitioner Adult Health
DX: Z51.5 Encounter for palliative care (principal); M17.0 Bilateral primary osteoarthritis of knee; G89.29 Other chronic pain; N28.89 Other specified disorders of kidney and ureter; C50.919 Malignant neoplasm of unspecified site of unspecified female breast; C79.51 Secondary malignant neoplasm of bone; C79.2 Secondary malignant neoplasm of skin; Z79.899 Other long term (current) drug therapy; Z66 Do not resuscitate
CPT/HCPCS: 99215

== ENCOUNTER 2021-11-22 09:04 | Outpatient (CLI) | payer MEDICARE, OTHER ==
[2021-11-22 09:43] LABS: BILIRUBIN,URINE NEGATIVE (NEGATIVE); GLUCOSE, URINE (UA) NEGATIVE (NEGATIVE); KETONES,URINE (UA) NEGATIVE (NEGATIVE); LEUKOCYTE ESTERASE, URINE NEGATIVE (NEGATIVE); NITRITE,URINE NEGATIVE (NEGATIVE); OCCULT BLOOD,URINE NEGATIVE (NEGATIVE); PROTEIN,URINE NEGATIVE (NEGATIVE); UROBILINOGEN,URINE 0.2 (NORMAL) E.U./dL (NORMAL)
[2021-11-22 09:55] LABS: BACTERIA,URINE None Seen /HPF (None Seen); CLARITY,URINE CLEAR (CLEAR); RBC,URINE None Seen /HPF (0-5); SQUAMOUS EPITHELIAL CELL,UR RARE Squamous (<= Few); WBC,URINE 0-3 /HPF (0-5)
--- NOTE | 2021-11-22 17:33 | Nuclear Medicine Report ---
PROCEDURE: Bone Whole Body INDICATIONS: BREAST CA RADIOPHARMACEUTICAL: 21.1 mCi Tc-99m MDP IV. TECHNIQUE: Delayed whole-body scintigrams were obtained approximately 3-4 hours after intravenous injection of r adiotracer. Anterior and posterior views were acquired from vertex to feet. Additional left and rig ht oblique views of the skull and cervical spine were obtained. COMPARISON: Whole-body bone scan, 06/19/2021, 12/04/2020. CT chest with contrast, 07/12/2021. CT abdom en and pelvis with contrast, 07/12/2021. FINDINGS: There is increase activity in T12, minimally changed when compared to last exam. This chau elates with a sclerotic lesion seen on the comparison CT, consistent with metastasis. Mildly increase activity in the left iliac bone is again noted, unchanged. The comparison CT showed a sclerotic lesi on, consistent with metastasis. Again noted is subtle increased activity in the right humeral shaft, suspicious for metastases. This is also unchanged. No new lesions are identified. Degenerative and ar thritic changes are noted. IMPRESSION: Stable bone scan with foci of metastatic disease. Reviewed by: Santhosh Morel MD on 11/22/2021 5:31 PM PDT Approved by: Santhosh Morel MD on 11/22/2021 5:31 PM PDT Station ID: [id number]
== END 2021-11-22 09:05 | disposition home or self-care (01) ==
LOC: DI 09:04
PROVIDERS: ATTEND Internal Medicine Hematology & Oncology
DX: C50.912 Malignant neoplasm of unspecified site of left female breast (principal); C79.2 Secondary malignant neoplasm of skin; C79.51 Secondary malignant neoplasm of bone; N28.89 Other specified disorders of kidney and ureter
CPT/HCPCS: 78306; 81001; 87086

== ENCOUNTER 2022-01-31 11:36 | Outpatient (CLI) | payer MEDICARE, OTHER | END 2022-01-31 11:37 | disposition home or self-care (01) | LOC: LAB.N 11:36 | PROVIDERS: ATTEND Internal Medicine Hematology & Oncology | DX: Z53.9 Procedure and treatment not carried out, unspecified reason (principal) ==

== ENCOUNTER 2022-02-21 16:33 | Outpatient (CLI) | payer MEDICARE, OTHER ==
--- NOTE | 2022-02-21 22:11 | CT Report ---
PROCEDURE: CHEST WO INDICATIONS: RENAL MASS, METS TECHNIQUE: Noncontrast 1mm axial images were acquired from the pulmonary apices to the posterior costophrenic an gles. Axial 5 mm soft tissue kernel reconstructions were performed as well as 8 mm axial MIP and cor onal and sagittal 5 mm reformations. For radiation dose reduction, the following was used: automate d exposure control, adjustment of mA and/or kV according to patient size. COMPARISON: FINDINGS: Image quality: Excellent. Lungs and pleura: No new acute airspace consolidation. Mild dependent atelectasis bilaterally. Redem onstration of subsolid 4 mm nodule in the periphery of the right lower lobe (image 158/series 4). No pleural effusions or pneumothorax. Central and peripheral airways are patent and normal in caliber. No septal thickening or nodularity. Mediastinum: Heart size is enlarged. Mild atherosclerotic calcifications of the coronary arteries. No pericardial effusion. No mediastinal adenopathy by size criteria. Thoracic aorta and central pul monary arteries are normal in size. Esophagus is normal in caliber. No hiatal hernia. Bones and chest wall: Stable appearance of mixed lytic/sclerotic lesion within the T12 vertebral body . No compression fracture seen. Moderate multilevel spondylitic changes seen throughout the imaged sp ine. No new, suspicious osseous lesions identified. Severe degenerative changes of the bilateral lizette ohumeral joints. Stable 2 mm right-sided T6 vertebral body sclerotic focus. No suspicious bony lesion s. No vertebral body compression fractures. No axillary or supraclavicular adenopathy by size crite danae. The thyroid gland appears unremarkable. Abdomen: Status post cholecystectomy. Scattered colonic diverticulosis. No evidence for acute diverti culitis. IMPRESSION: 1. Continued interval decrease in conspicuity of bilateral groundglass opacities with mild bibasilar atelectasis. Stable appearance of 4 mm subsolid nodule in the periphery of the right lower lobe. 2. Stable T6 and T12 osteoblastic lesions. No new suspicious osseous lesions identified. 3. Colonic diverticulosis without acute diverticulitis. 4. Status post cholecystectomy. 5. Mild cardiomegaly. 6. Atherosclerosis. CLINICAL RECOMMENDATION STATEMENTS: In patients <35 years with an ITN detected on CT, MRI, or extrathyroidal ultrasound, the Committee re commends further evaluation with dedicated thyroid ultrasound if the nodule is "e1 cm and has no susp icious imaging features, and if the patient has normal life expectancy. In patients "e35 years with an ITN detected on CT, MRI, or extrathyroidal ultrasound, the Committee r ecommends further evaluation with dedicated thyroid ultrasound if the nodule is "e1.5 cm and has no s uspicious imaging features, and if the patient has normal life expectancy. (ACR, 2014) Reviewed by: Teofilo Ayers MD on 02/21/2022 10:10 PM PDT Approved by: Teofilo Ayers MD on 02/21/2022 10:10 PM PDT Station ID: [id number]
== END 2022-02-21 16:34 | disposition home or self-care (01) ==
LOC: DI 16:33
PROVIDERS: ATTEND Urology
DX: J98.11 Atelectasis (principal); R91.1 Solitary pulmonary nodule; K57.30 Diverticulosis of large intestine without perforation or abscess without bleeding; Z90.49 Acquired absence of other specified parts of digestive tract; I51.7 Cardiomegaly; I25.10 Atherosclerotic heart disease of native coronary artery without angina pectoris

== ENCOUNTER 2023-06-26 06:15 | Day surgery (SDC) | payer MEDICARE, OTHER ==
[2023-06-26] MEDS ORDERED: CLINDAMYCIN 900 MG/50 ML 900 MG/50 ML BAG IV ONE (06:29)
[2023-06-26] MEDS ORDERED: LACTATED RINGERS 1,000 ML IV ONE ×2 (06:31)
[2023-06-26] MEDS ORDERED: LIDOCAINE 1%-EPI 1:100000 20 ML MDV ONE (07:09)
[2023-06-26] MEDS ORDERED: BUPIVACAINE 0.25% PF 30 ML VIAL ONE ×2 (07:10→07:11)
[2023-06-26] MEDS ORDERED: fentaNYL 100 MCG/2 ML VIAL ONE (07:38)
[2023-06-26] MEDS ORDERED: KETAMINE 200 MG/20 ML VIAL ONE (07:38)
[2023-06-26] MEDS ORDERED: PROPOFOL 500 MG/50 ML 500 MG/50 ML VIAL ONE (07:38)
[2023-06-26] MEDS ORDERED: MIDAZOLAM 2 MG/2 ML VIAL ONE (07:38)
--- NOTE | 2023-06-26 07:38 | ANESTHESIA ---
Pre-Anesthesia VS, & Labs - Diagnosis breast CA - Procedure port placement Vital Signs: Temp Pulse Resp BP Pulse Ox O2 Flow Rate 36.0 C L 83 14 130/69 97 06/26/23 06:46 06/26/23 06:46 06/26/23 06:46 06/26/23 06:46 06/26/23 06:46 Height: 5 ft 6 in Weight (kg): 113.4 kg Body Mass Index: 40.3 BMI Classification: Morbidly Obese - NPO >8 hours - Is Patient ?: No Home Medications and Allergies Cholecalciferol [Vitamin D3] 2,000 units PO DAILY 01/02/21 Community Mushrooms 2 cap PO DAILY MDD hold for surgery 01/02/21 N-Acetyl L-Cysteine 600 mg PO DAILY MDD hold for surgery 01/02/21 Alpelisib [Vijoice] 300 mg PO DAILY 05/29/23 Acyclovir 1 tab PO QID PRN 06/04/23 Prochlorperazine Maleate [Compazine] 10 mg PO Q4HR PRN 06/04/23 oxyCODONE [Roxicodone] 1 tab PO Q6HR PRN 06/19/23 Calcium Citrate 1,000 mg PO DAILY 06/22/23 Fulvestrant [Faslodex] 250 mg IM UD 06/22/23 Lactobacillus Acidophilus [Acidophilus] 1 each PO DAILY 06/22/23 Lidocaine/Prilocain 2.5% Cream [Emla 2.5% Cream] 1 inch TOP PRN 06/23/23 Ondansetron HCl 4 mg PO Q4HR PRN 06/23/23 Allergies/Adverse Reactions: Allergies Allergy/AdvReac Type Severity Reaction Status Date / Time iodine Allergy Unknown Verified 10/31/22 10:49 Penicillins Allergy Unknown Verified 10/31/22 10:49 Sulfa (Sulfonamide Allergy Unknown Verified 10/31/22 10:49 Antibiotics) barium sulfate AdvReac Unknown Verified 04/10/23 15:22 [From Readi-Cat] Anes History & Medical History - Anesthetic History Anesthesia Complications: reports: No previous complications Family history of Anesthesia Complications: Denies Family history of Malignant Hyperthermia: Denies - Medical History Cardiovascular: reports: Hypertension Pulmonary: reports: None Gastrointestinal: reports: None, Cholelithiasis Urinary: reports: Other Neuro: reports: None Musculoskeletal: reports: None Endocrine/Autoimmune: reports: None Skin: reports: None Smoking Status: Never smoker - Surgical History General: reports: Cholecystectomy, Colonoscopy Eyes Ears Nose Throat (EENT): reports: Cataracts Gynecologic: reports: Oophrectomy, Other Orthopedic: reports: Knee replacement Exam General: Alert, Oriented x3, Cooperative Dental: WNL Mouth Openin Fingerbreadth Neck Mobility: Normal Mallampati classification: III Thyromental Distance: 4-6 cm Respiratory: Lungs clear Cardiovascular: Regular rate Plan Anesthesia Type: General, Total IV Consent for Procedure(s) Verified and Reviewed: Yes Code Status: Attempt Resuscitation ASA classification: 3-Severe systemic disease Is this case an emergency?: No
[2023-06-26] MEDS ORDERED: BUPIVACAINE 0.25% PF 30 ML VIAL SUBQ ONE ×2 (08:24)
[2023-06-26] MEDS ORDERED: LIDOCAINE 1%-EPI 1:100000 20 ML MDV SUBQ ONE ×2 (08:25)
[2023-06-26] MEDS ORDERED: PROPOFOL 200 MG/20 ML VIAL IVP ONE (09:02)
[2023-06-26] MEDS ORDERED: LACTATED RINGERS 200 ML IV ONE (09:25)
--- NOTE | 2023-06-26 09:53 | OPERATIVE REPORT ---
Operative Report - Other Other Information/Narrative: PROCEDURE DATE: 06/26/2023 PREOPERATIVE DIAGNOSIS: Yisel is a 77 year old female with metastatic breast cancer. I am asked to perform venous access using an implantable infusion device. POSTOPERATIVE DIAGNOSIS: Same NAME OF PROCEDURE: Placement of a PowerPort Implantable port into the SVC via a left IJ insertion using real-time US guidance. SURGEON: Rachid Parr MD, FACS ASSISTANT MANAGER RETAIL: Radio Despatcher ANESTHESIA: Local with monitored sedation COMPLICATIONS: Unable to use the left cephalic or subclavian vein for insertion; ESTIMATED BLOOD LOSS: 30 ml DRAINS: None DESCRIPTION OF OPERATION IS FOLLOWS: After consent for the procedure was obtained, the patient was brought to the operating room, where a surgical time- out was performed, indicating the patient and the procedure to be performed. A rolled towel was placed between the shoulder blades. The anterior chest wall, right and left sides, were prepped with chlorhexidine and draped in a sterile fashion. The left arm was placed at the side, and the left chest wall was exposed. 1% lidocaine with epinephrine in a 50/50 mix with 1/4% Marcaine was used for local anesthesia throughout the procedure. The patient was placed into Trendelenburg position. An incision was made in the skin over the left deltopectoral groove and after the subcutaneous tissue was dissected the cephalic vein was identified deep within the deltopectoral groove. The cephalic vein was ligated distally and encircled proximally with 3-0 silk ligatures. A venotomy was made and a single lumen catheter which had been previously flushed with heparinized saline was placed into the vein. Using fluoroscopy the catheter tip was advanced but would only course into the left internal mammary vein despite multiple catheter and patient position maneuvers. The cutdown procedure was aborted and the catheter removed from the vein. The vein was ligated with 3-0 Vicryl suture to prevent bleeding. Attempt at left subclavian venapuncture was unsuccessful as the vein could not be accessed using an 18 G needle. Using realtime ultrasonography, the left internal jugular vein was accessed and a guidewire placed into the IJV using fluoroscopy. A vein dilator within a peel-away sheath was inserted into the IJ and the dilator removed. The infusion catheter was placed into the peel-away sheath and positioned at the junction of the SVC and right atrium. The other end of the catheter was then brought through the subcutaneous tissue into the left cutdown site using the tunnel device. A step-down incision was created to negotiate the catheter over the left clavicle. A subcutaneous pocket was created at the cutdown incision site using electrocautery. The catheter was cut to the appropriate length and attached to the port using the accompanying flange The port was sutured to the pectoralis major muscle and fascia using interrupted 2-0 Vicryl suture after the port was placed into the pocket. The port was checked in this position and it aspirated blood and easily instilled heparinized saline. The incision was closed using a running 4-0 Vicryl suture for the subcutaneous tissue. The skin was closed with a running 4-0 Vicryl subcuticular suture with Steri-Strips to reinforce the epidermis. The port again was checked for patency after the skin incision was closed and it functioned appropriately. . Dressings were placed. A post-procedure CXR showed no pneumothorax and the tip of the catheter at the SVC right atrium junction. The patient tolerated the procedure well and was brought to the recovery room with stable vital signs. A post-procedure CXR was pending at the time of this dictation.
[2023-06-26 09:54] VITALS: BP 106/59; O2SAT 93
--- NOTE | 2023-06-26 10:10 | XRAY Report ---
PROCEDURE: Post Port Placement 1V CXR INDICATIONS: R/O left pneumothorax TECHNIQUE: One view of the chest was acquired. COMPARISON: CT chest dated 05/29/2023. FINDINGS: Surgical changes and devices: Left chest Port-A-Cath projects to the SVC right atrial junction. Lungs and pleura: No pleural effusions or pneumothorax. Densities projecting over the left mid and l ower lung henderson are felt to be likely on the patient and not pulmonary nature. Mediastinum: Mediastinal contours appear normal. Heart size is normal. Bones and chest wall: No suspicious bony lesions. Overlying soft tissues appear unremarkable. IMPRESSION: Port-A-Cath tip projects to the SVC right atrial junction. Reviewed by: Marquise Newell MD on 06/26/2023 10:08 AM PDT Approved by: Marquise Newell MD on 06/26/2023 10:08 AM PDT Station ID: [id number]
--- NOTE | 2023-06-26 10:47 | XRAY Report ---
PROCEDURE: OR Port-A-Cath INDICATIONS: PORT PLACEMENT FLUORO TIME: 0.6 MIN TECHNIQUE: Real time fluoroscopy was performed of the thorax. COMPARISON: None. FINDINGS: Under fluoroscopic views during port placement demonstrates catheter with tip within the cavoatrial j unction versus proximal right atrium. IMPRESSION: Limited fluoroscopic views during port placement. Reviewed by: Den Fuller MD on 06/26/2023 10:45 AM PDT Approved by: Den Fuller MD on 06/26/2023 10:45 AM PDT Station ID: [id number]
--- NOTE | 2023-06-26 14:12 | ANESTHESIA POST OP EVALUATION ---
Anesthesia Post Eval - Post Anesthesia Eval Vitals: Last Vital Signs Temp 36.2 C L 06/26/23 09:25 Pulse 62 06/26/23 09:53 Resp 16 06/26/23 09:53 BP 106/59 L 06/26/23 09:53 Pulse Ox 93 06/26/23 09:53 O2 Flow Rate
== END 2023-06-26 06:16 | disposition home or self-care (01) ==
LOC: SDS 06:15
PROVIDERS: ATTEND Surgery
DX: C50.919 Malignant neoplasm of unspecified site of unspecified female breast (principal); E66.01 Morbid (severe) obesity due to excess calories; Z68.41 Body mass index [BMI] 40.0-44.9, adult
CPT/HCPCS: 36561; C1788; J3490; J7120

== ENCOUNTER 2023-11-13 12:13 | Emergency (ER) | payer MEDICARE, OTHER ==
--- NOTE | 2023-11-13 13:11 | XRAY Report ---
PROCEDURE: Chest 1V INDICATIONS: Fluid overload TECHNIQUE: One view of the chest was acquired. COMPARISON: CT 10/16/2023. FINDINGS: Surgical changes and devices: Left chest wall port. Lungs and pleura: Streaky bibasilar airspace opacities. Mediastinum: Mediastinal contours appear normal. Heart size is normal. Bones and chest wall: No suspicious bony lesions. Overlying soft tissues appear unremarkable. IMPRESSION: Streaky bibasilar airspace opacities, likely atelectasis, less likely infection or aspiration. No evidence of significant pulmonary edema. Reviewed by: Rafi Nicholas MD on 11/13/2023 1:09 PM PDT Approved by: Rafi Nicholas MD on 11/13/2023 1:09 PM PDT Station ID: [id number]
[2023-11-13 13:21] LABS: BASOPHILS # (AUTO) 0.1 10^3/uL (0.0-0.1); BASOPHILS % (AUTO) 0.8 %; EOSINOPHILS # (AUTO) 0.1 10^3/uL (0.0-0.7); EOSINOPHILS % (AUTO) 1.6 %; HCT - HEMATOCRIT 52.7 % (37.0-47.0); HGB - HEMOGLOBIN 16.5 g/dL (12.0-16.0); LYMPHOCYTES # (AUTO) 1.6 10^3/uL (1.5-3.5); LYMPHOCYTES % (AUTO) 19.7 %; MEAN CORPUSCULAR HEMOGLOBIN 28.5 pg (27.0-31.0); MEAN CORPUSCULAR HGB CONC 31.3 g/dL (32.0-36.0); MEAN CORPUSCULAR VOLUME 91.2 fL (81.0-99.0); MONOCYTES # (AUTO) 0.7 10^3/uL (0.0-1.0); MONOCYTES % (AUTO) 8.1 %; NEUTROPHILS # (AUTO) 5.7 10^3/uL (1.5-6.6); NEUTROPHILS % (AUTO) 69.2 %; PLT - PLATELET COUNT 178 10^3/uL (130-450); RED BLOOD COUNT 5.78 10^6/uL (4.20-5.40); RED CELL DISTRIBUTION WIDTH 19.7 % (12.0-15.0); WHITE BLOOD COUNT 8.3 x10^3/uL (4.8-10.8)
[2023-11-13 13:37] LABS: ALBUMIN 3.5 g/dL (3.2-5.5); BILIRUBIN,TOTAL 1.8 mg/dL (0.2-1.0); CREATININE 0.9 mg/dL (0.6-1.3); MAGNESIUM 1.7 mg/dL (1.7-2.3); POTASSIUM 3.4 mmol/L (3.5-4.5); TOTAL PROTEIN 6.9 g/dL (6.4-8.9)
--- NOTE | 2023-11-13 13:42 | ED Physician Documentation ---
PD HPI ABD PAIN - Stated complaint Stated Complaint: SOA SENT BY [facility] [place] - Chief complaint Chief Complaint: Cardiac - History obtained from History obtained from: Patient - Additional information Additional information: 78-year-old woman with history of metastatic breast cancer sent from the [facility] [place] clinic. For ascites. She was on Lasix at a dose of 40 mg a day. It was recently decreased to 20 mg a day and then she unilaterally stopped it. Over the last couple of weeks since doing that she has developed significant edema of the legs and abdomen. Review of recent results show that on October [address] of the abdomen pelvis showing innumerable liver lesions, stable osseous metastatic disease and ascites. She also wonders if she might have a UTI. This is based on urinary incontinence without dysuria. She has had a lot of UTIs. Next PD PAST MEDICAL HISTORY - Past Medical History Past Medical History: Yes Cardiovascular: Congestive heart failure, Hypertension Respiratory: None Neuro: None Endocrine/Autoimmune: None GI: None : Incontinence, Other HEENT: Other Psych: None Musculoskeletal: Osteoarthritis, Fatigue Derm: Other - Past Surgical History Past Surgical History: Yes General: Cholecystectomy Ortho: Knee replacement /[employer]: Oophrectomy, Other HEENT: Tonsil/Adenoidectomy - Present Medications Home Medications: Ambulatory Orders Medication Instructions Recorded Confirmed Cholecalciferol [Vitamin D3] 2,000 units PO DAILY 01/02/21 10/23/23 Community Mushrooms 2 cap PO DAILY MDD hold for surgery 01/02/21 06/26/23 N-Acetyl L-Cysteine 600 mg PO DAILY MDD hold for 01/02/21 10/23/23 surgery Alpelisib [Vijoice] 300 mg PO DAILY 05/29/23 10/23/23 Acyclovir 1 tab PO QID PRN 06/04/23 10/23/23 Prochlorperazine Maleate 10 mg PO Q4HR PRN 06/04/23 10/23/23 [Compazine] oxyCODONE [Roxicodone] 1 tab PO Q6HR PRN 06/19/23 10/23/23 Calcium Citrate 1,000 mg PO DAILY 06/22/23 10/23/23 Fulvestrant [Faslodex] 250 mg IM UD 06/22/23 10/23/23 Lactobacillus Acidophilus 1 each PO DAILY 06/22/23 10/23/23 [Acidophilus] Lidocaine/Prilocain 2.5% Cream 1 inch TOP PRN 06/23/23 [Emla 2.5% Cream] Ondansetron HCl 4 mg PO Q4HR PRN 06/23/23 10/23/23 Acetaminophen/Cod 300/30 [Tylenol 1 tab PO PRN PRN 06/30/23 10/23/23 #3] Cholecalciferol [Vitamin D3] 2,000 unit PO DAILY 06/30/23 10/23/23 Cranberry Conc/Ascorbic Acid 1 each PO DAILY 06/30/23 10/23/23 [Cranberry Conc-Vitamin C Cap] Mecobalamin [B12 Active] 5,000 mcg PO OAW 06/30/23 10/23/23 Naproxen Sodium [Aleve] 1 tab PO PRN PRN 06/30/23 10/23/23 Thiamine [Vitamin B-1] 100 mg PO DAILY 06/30/23 10/23/23 Ciprofloxacin HCl [Cipro] 500 mg PO BID 07/01/23 10/23/23 Furosemide [Lasix] 20 mg PO DAILY 07/28/23 10/23/23 Magnesium Oxide [Magnesium] 500 mg PO DAILY 07/28/23 10/23/23 Cefuroxime Axetil [Cefuroxime] 250 mg PO BID 08/21/23 10/23/23 Furosemide [Lasix] 2 tab PO DAILY #30 tablet 11/13/23 Potassium Chloride 10 meq PO DAILY #30 tab 11/13/23 - Allergies Allergies/Adverse Reactions: Allergies Allergy/AdvReac Type Severity Reaction Status Date / Time iodine Allergy Unknown Verified 11/13/23 12:43 Penicillins Allergy Unknown Verified 11/13/23 12:43 Sulfa (Sulfonamide Allergy Unknown Verified 11/13/23 12:43 Antibiotics) barium sulfate AdvReac Unknown Verified 11/13/23 12:43 [From Readi-Cat] - Social History Does the pt smoke?: No Smoking Status: Never smoker Does the pt drink ETOH?: Yes Does the pt have substance abuse?: No - POLST Patient has POLST: Yes PD ED PE NORMAL - Vitals Vital signs reviewed: Yes - General General: Alert and oriented X 3, No acute distress - Cardiac Cardiac: RRR, No murmur - Respiratory Respiratory: No respiratory distress, Clear bilaterally - Abdomen Abdomen: Other (distended, non tender, ++ ascites) - Extremities Extremities: Other (2+ pitting edema) - Neuro Neuro: Alert and oriented X 3 Results - Vitals Vitals: Vital Signs - 24 hr 11/13/23 11/13/23 12:35 13:42 Temperature 36.2 C L Heart Rate 71 70 Respiratory 16 16 Rate Blood Pressure 148/79 H 151/77 H O2 Saturation 95 94 Oxygen O2 Source Room air - Labs Labs: Laboratory Tests 11/13/23 11/13/23 11/13/23 13:12 13:12 13:12 WBC 8.3 RBC 5.78 H Hgb 16.5 H Hct 52.7 H MCV 91.2 MCH 28.5 MCHC 31.3 L RDW 19.7 H Plt Count 178 MPV 9.0 Neut # (Auto) 5.7 Lymph # (Auto) 1.6 [place] # (Auto) 0.7 Eos # (Auto) 0.1 Baso # (Auto) 0.1 Absolute Nucleated RBC 0.00 Nucleated RBC % 0.0 Sodium 133 L Potassium 3.4 L Chloride 99 L Carbon Dioxide 28 Anion Gap 6.0 BUN 13 Creatinine 0.9 Estimated GFR (MDRD) 61 L Glucose 354 H Calcium 9.0 Magnesium 1.7 Total Bilirubin 1.8 H AST 58 H ALT 40 Alkaline Phosphatase 131 H B-Natriuretic Peptide 139 H Total Protein 6.9 Albumin 3.5 Globulin 3.4 Albumin/Globulin Ratio 1.0 Urine Color Urine Clarity Urine pH Ur Specific [place] Urine Protein Urine Glucose (UA) Urine Ketones Urine Occult Blood Urine Nitrite Urine Bilirubin Urine Urobilinogen Ur Leukocyte Esterase Ur Microscopic Review Urine Culture Comments 11/13/23 14:29 WBC RBC Hgb Hct MCV MCH MCHC RDW Plt Count MPV Neut # (Auto) Lymph # (Auto) [place] # (Auto) Eos # (Auto) Baso # (Auto) Absolute Nucleated RBC Nucleated RBC % Sodium Potassium Chloride Carbon Dioxide Anion Gap BUN Creatinine Estimated GFR (MDRD) Glucose Calcium Magnesium Total Bilirubin AST ALT Alkaline Phosphatase B-Natriuretic Peptide Total Protein Albumin Globulin Albumin/Globulin Ratio Urine Color YELLOW Urine Clarity CLEAR Urine pH 6.5 Ur Specific [place] 1.010 Urine Protein NEGATIVE Urine Glucose (UA) 100 H Urine Ketones NEGATIVE Urine Occult Blood NEGATIVE Urine Nitrite NEGATIVE Urine Bilirubin NEGATIVE Urine Urobilinogen 0.2 (NORMAL) Ur Leukocyte Esterase NEGATIVE Ur Microscopic Review NOT INDICATED Urine Culture Comments NOT INDICATED Procedures - Paracentesis - Major Preparation: Consent obtained, Local anesthesia Location: RLQ Technique: Catheter over needle Fluid: Cloudy, Sent for cell count, Volume - enter cc (4 liters), Sent for cytology Aftercare: No complications PD Medical Decision Making - ED course ED course: 78-year-old woman presents with known metastatic breast cancer and liver lesions with edema and a lot of abdominal swelling. Bedside ultrasound shows significant ascites and after consent of 4 L paracentesis was done. I called the [facility] and was passed along to me that they would like cytology as well as a culture with Gram stain and these were ordered. Departure - Departure Disposition: Home, Self Care Clinical Impression: Ascites Qualifiers: Ascites type: malignant Qualified Code(s): R18.0 - Malignant ascites Condition: Good Record reviewed to determine appropriate education?: Yes Instructions: ED Ascites Prescriptions: Furosemide [Lasix] 2 tab PO DAILY #30 tablet Potassium Chloride 10 meq PO DAILY #30 tab Comments: You were seen today for fluid retention and new ascites likely related to your cancer. There is testing pending on the fluid, specifically cytology to look if there are cancer cells in it and a culture. We will call you if the culture is positive. Follow-up with your oncologist for as scheduled for review of the other testing. In the meantime lets restart you on the diuretic. I would start at a dose of 40 mg a day, but if you feel like all the swelling goes away you can drop back down to 20 again. Any day you take the diuretic you should also take potassium supplement which is also prescribed. I sent your prescription electronically to the [facility] pharmacy in [place]. Forms: PCP List
[2023-11-13] MEDS: FUROSEMIDE 40 MG/4 ML VIAL IVP STA (13:50)
[2023-11-13 14:40] LABS: BILIRUBIN,URINE NEGATIVE (NEGATIVE); GLUCOSE, URINE (UA) 100 mg/dL (NEGATIVE); KETONES,URINE (UA) NEGATIVE (NEGATIVE); LEUKOCYTE ESTERASE, URINE NEGATIVE (NEGATIVE); NITRITE,URINE NEGATIVE (NEGATIVE); OCCULT BLOOD,URINE NEGATIVE (NEGATIVE); PH,URINE 6.5 PH (5.0-7.5); PROTEIN,URINE NEGATIVE (NEGATIVE); UROBILINOGEN,URINE 0.2 (NORMAL) E.U./dL (NORMAL)
[2023-11-13 14:41] LABS: CLARITY,URINE CLEAR (CLEAR)
[2023-11-13 15:15] VITALS: BP 153/85; O2SAT 95
== END 2023-11-13 15:23 | disposition home or self-care (01) ==
LOC: ED 12:13
DX: C50.919 Malignant neoplasm of unspecified site of unspecified female breast (principal); R18.0 Malignant ascites; I10 Essential (primary) hypertension
CPT/HCPCS: 36415; 49082; 80053; 81001; 81003; 83735; 83880; 85025; 87070; 87077; 87086; 87181; 87205; 99283

== ENCOUNTER 2023-11-20 13:33 | Emergency (ER) | payer MEDICARE, OTHER ==
--- NOTE | 2023-11-20 14:52 | ED Physician Documentation ---
PD HPI ABD PAIN - Stated complaint Stated Complaint: ABD EXTENSION - Chief complaint Chief Complaint: Abd Pain - History obtained from History obtained from: Patient - Additional information Additional information: Widely metastatic BRCA. Had paracentesis 1 week ago. Would like another d/t swelling. PD PAST MEDICAL HISTORY - Past Medical History Past Medical History: Yes Cardiovascular: Hypertension Respiratory: None Neuro: None Endocrine/Autoimmune: None GI: None : Incontinence, Other HEENT: Other Psych: None Musculoskeletal: Osteoarthritis, Fatigue Derm: Other - Present Medications Home Medications: Ambulatory Orders Medication Instructions Recorded Confirmed Cholecalciferol [Vitamin D3] 2,000 units PO DAILY 01/02/21 11/20/23 Community Mushrooms 2 cap PO DAILY MDD hold for surgery 01/02/21 11/20/23 N-Acetyl L-Cysteine 600 mg PO DAILY MDD hold for 01/02/21 11/20/23 surgery Alpelisib [Vijoice] 300 mg PO DAILY 05/29/23 11/20/23 Acyclovir 1 tab PO QID PRN 06/04/23 11/20/23 Prochlorperazine Maleate 10 mg PO Q4HR PRN 06/04/23 11/20/23 [Compazine] oxyCODONE [Roxicodone] 1 tab PO Q6HR PRN 06/19/23 11/20/23 Calcium Citrate 1,000 mg PO DAILY 06/22/23 11/20/23 Fulvestrant [Faslodex] 250 mg IM UD 06/22/23 11/20/23 Lactobacillus Acidophilus 1 each PO DAILY 06/22/23 11/20/23 [Acidophilus] Lidocaine/Prilocain 2.5% Cream 1 inch TOP UD 06/23/23 11/20/23 [Emla 2.5% Cream] Ondansetron HCl 4 mg PO Q4HR PRN 06/23/23 11/20/23 Acetaminophen/Cod 300/30 [Tylenol 1 tab PO PRN PRN 06/30/23 11/20/23 #3] Cholecalciferol [Vitamin D3] 2,000 unit PO DAILY 06/30/23 11/20/23 Cranberry Conc/Ascorbic Acid 1 each PO DAILY 06/30/23 11/20/23 [Cranberry Conc-Vitamin C Cap] Mecobalamin [B12 Active] 5,000 mcg PO OAW 06/30/23 11/20/23 Naproxen Sodium [Aleve] 1 tab PO PRN PRN 06/30/23 11/20/23 Thiamine [Vitamin B-1] 100 mg PO DAILY 06/30/23 11/20/23 Ciprofloxacin HCl [Cipro] 500 mg PO BID 07/01/23 11/20/23 Furosemide [Lasix] 20 mg PO DAILY 07/28/23 11/20/23 Magnesium Oxide [Magnesium] 500 mg PO DAILY 07/28/23 11/20/23 Cefuroxime Axetil [Cefuroxime] 250 mg PO BID 08/21/23 11/20/23 Potassium Chloride 10 meq PO DAILY #30 tab 11/13/23 11/20/23 Furosemide [Lasix] 20 mg PO BID 11/20/23 11/20/23 Potassium Chloride [Micro-K] 10 meq PO DAILY 11/20/23 11/20/23 - Allergies Allergies/Adverse Reactions: Allergies Allergy/AdvReac Type Severity Reaction Status Date / Time iodine Allergy Unknown Verified 11/20/23 13:36 Penicillins Allergy Unknown Verified 11/20/23 13:36 Sulfa (Sulfonamide Allergy Unknown Verified 11/20/23 13:36 Antibiotics) barium sulfate AdvReac Unknown Verified 11/20/23 13:36 [From Readi-Cat] - Social History Does the pt smoke?: No Smoking Status: Never smoker Does the pt drink ETOH?: No Does the pt have substance abuse?: No - Immunizations Immunizations are current?: Yes - POLST Patient has POLST: Yes PD ED PE NORMAL - Vitals Vital signs reviewed: Yes - General General: Alert and oriented X 3, No acute distress - Abdomen Abdomen: Other (Distended abd, nttp, + fluid wave) Results - Vitals Vitals: Vital Signs - 24 hr 11/20/23 13:36 Temperature 36.8 C Heart Rate 72 Respiratory 16 Rate Blood Pressure 148/74 H O2 Saturation 97 Oxygen O2 Source Room air Procedures - Paracentesis - Major Preparation: Consent obtained Location: RLQ Technique: Catheter over needle Fluid: Clear, Volume - enter cc (2200ml) Aftercare: No complications Departure - Departure Disposition: 01 Home, Self Care Clinical Impression: Ascites Condition: Good Record reviewed to determine appropriate education?: Yes Forms: PCP List
[2023-11-20 15:54] LABS: BASOPHILS # (AUTO) 0.1 10^3/uL (0.0-0.1); EOSINOPHILS # (AUTO) 0.1 10^3/uL (0.0-0.7); EOSINOPHILS % (AUTO) 1.7 %; HCT - HEMATOCRIT 51.6 % (37.0-47.0); HGB - HEMOGLOBIN 16.5 g/dL (12.0-16.0); LYMPHOCYTES # (AUTO) 1.8 10^3/uL (1.5-3.5); LYMPHOCYTES % (AUTO) 22.7 %; MEAN CORPUSCULAR HEMOGLOBIN 29.2 pg (27.0-31.0); MEAN CORPUSCULAR VOLUME 91.2 fL (81.0-99.0); MEAN PLATELET VOLUME 9.4 fL (7.9-10.8); MONOCYTES # (AUTO) 0.7 10^3/uL (0.0-1.0); NEUTROPHILS # (AUTO) 5.3 10^3/uL (1.5-6.6); PLT - PLATELET COUNT 166 10^3/uL (130-450); RED BLOOD COUNT 5.66 10^6/uL (4.20-5.40); RED CELL DISTRIBUTION WIDTH 18.7 % (12.0-15.0); WHITE BLOOD COUNT 8.1 x10^3/uL (4.8-10.8)
[2023-11-20 16:08] LABS: ALBUMIN 3.4 g/dL (3.2-5.5); ALBUMIN/GLOBULIN RATIO 1.1 (1.0-2.2); BILIRUBIN,TOTAL 2.6 mg/dL (0.2-1.0); CALCIUM 8.9 mg/dL (8.5-10.3); POTASSIUM 3.2 mmol/L (3.5-4.5); TOTAL PROTEIN 6.6 g/dL (6.4-8.9)
[2023-11-20 16:12] VITALS: BP 130/65; O2SAT 96
== END 2023-11-20 16:07 | disposition home or self-care (01) ==
LOC: ED 13:33
DX: R18.8 Other ascites (principal); C50.919 Malignant neoplasm of unspecified site of unspecified female breast
CPT/HCPCS: 36415; 49082; 80053; 83690; 85025

== ENCOUNTER 2023-11-20 16:12 | Outpatient (CLI) | payer MEDICARE, OTHER ==
[2023-11-20] MEDS: iohexoL-300 100 ML VIAL IVP ONE (18:24)
[2023-11-20] MEDS: DIATRIZOATE MEGLU/DIATRIZO SOD 30 ML BOTTLE PO ONE (18:24)
--- NOTE | 2023-11-20 19:08 | CT Report ---
PROCEDURE: Chest W INDICATIONS: HISTORY OF BREAST CANCER CONTRAST: 100ml omni 300 TECHNIQUE: After the administration of intravenous contrast, a CT scan of the chest was performed. Images were recorded and evaluated at appropriate window settings. Reformats: axial MIP of the chest, coronal and sagittal. For radiation dose reduction, the following was used: automated exposure control, adjustme nt of mA and/or kV according to patient size. COMPARISON: CT chest dated 10/16/2023, CT abdomen and pelvis from today.. FINDINGS: Image quality: Diagnostic. Chest wall and lower neck: No thyroid nodule which requires sonographic follow up. No axillary or sup raclavicular adenopathy by size. Remote left lumpectomy and axillary node resection. Lungs and pleura: No consolidation. A small right pleural effusion is stable. A smaller left pleural effusion effusion has increased slightly since the previous study. There is associated compressive bi basilar atelectasis, mild. No suspicious pulmonary nodules which require follow up. Mediastinum: Heart size is normal. No pericardial effusion. No large vessel abnormality. No mediastin al adenopathy by size criteria. Bones: Again noted is multifocal bony metastatic disease. The most impressive finding is at T12, wher e there is a pathologic compression fracture in a predominant sclerotic metastatic lesion. There is a degree of bony retropulsion present and bony expansion which extends posteriorly in the central gary l and lateral recesses resulting in perhaps mild canal stenosis. This is stable. A sclerotic small T6 vertebral body lesion is stable. There are 2 focal small T1 lesions which are also stable. Severe bi lateral glenohumeral joint degenerative arthritis. Upper Abdomen: Please refer to a separate report describing these findings, which include extensive h epatic metastatic disease and ascites in the upper abdomen. IMPRESSION: 1. Stable small right pleural effusion and increasing smaller left pleural effusion with associated a telectasis in the lung bases. 2. No suspicious pulmonary nodules or mediastinal adenopathy or axillary adenopathy. 3. Osseous metastatic disease as described above. Findings include a pathologic compression of T12 wi th some extension of bone into the spinal canal, resulting in mild canal stenosis. 4. Please refer to separate report describing metastatic disease in the abdomen and pelvis also perfo rmed today. Reviewed by: Marquise Newell MD on 11/20/2023 7:06 PM PDT Approved by: Marquise Newell MD on 11/20/2023 7:06 PM PDT Station ID: [id number]
--- NOTE | 2023-11-20 19:17 | CT Report ---
PROCEDURE: Abdomen/Pelvis W INDICATIONS: HISTORY OF BREAST CANCER CONTRAST: 100ml omni 300 TECHNIQUE: After the administration of intravenous contrast, a CT scan of the abdomen and pelvis was performed. Images were recorded and evaluated at appropriate window settings. Reformats: coronal and sagittal. F or radiation dose reduction, the following was used: automated exposure control, adjustment of mA and /or kV according to patient size. COMPARISON: CT chest from today, CT abdomen and pelvis dated 10/16/2023, CT of the abdomen and pelvis dated 12/02/2022, CT abdomen and pelvis with contrast dated 12/02/2022 FINDINGS: Image quality: Diagnostic. Lower chest: Unremarkable. Liver: Over the course of multiple examinations, extensive hepatic metastatic disease has developed, and the liver has also developed a shrunken multilobulated appearance and contour. There is no apprec iable change since the most recent previous study. Gallbladder and biliary tree: Surgically absent Spleen: No splenomegaly. Pancreas: No pancreatic ductal dilation. Adrenals: No adrenal nodule. Kidneys and ureters: No hydronephrosis. No renal cystic lesion which requires follow up. No solid mas s. Stomach, bowel and peritoneum: No bowel distension. The amount of abdominal and pelvic ascites has de creased, which I would previously described as being moderate and is now relatively mild. Lymph nodes: No central or retroperitoneal adenopathy. Vessels: No infrarenal aortic aneurysm. PELVIS Reproductive organs: There is a small amount of air in the endometrial canal in the fundus of the berry kelly, not significantly changed from the previous study, presumed to be an incidental finding in this patient. Bladder: No abnormal wall thickening, accounting for underdistention. Pelvic lymph nodes: No pelvic adenopathy by size criteria. Bones: Again noted is a predominant sclerotic metastatic lesion of T12 with pathologic compression an d some retropulsion of bone into the central canal and lateral recesses with mild resultant canal william nosis. No additional compression fractures are identified. There is benign etiology at least moderate canal stenosis at L4-L5.. Other: Anasarca appears progressed compared to the most recent previous study. IMPRESSION: 1. Extensive hepatic metastatic disease has developed over time, with associated shrinkage and lobula tions of the contour of the surface of the liver. There is no significant change since most recent pr ior study. No evidence of significant progression of disease. 2. Interval decrease in abdominal and pelvic ascites, previously mild to moderate and now mild. 3. A pathologic compression of T12 is again noted with bone extending somewhat into the canal resulti ng in mild canal stenosis. No new compression fractures are identified. There is no significant canal stenosis noted related to metastatic disease. There is benign etiology at least moderate canal steno sis at L4-L5. 4. There are no findings suggesting progression of metastatic disease in the abdomen and pelvis since last month. 5. Worsening anasarca. Reviewed by: Marquise Newell MD on 11/20/2023 7:16 PM PDT Approved by: Marquise Newell MD on 11/20/2023 7:16 PM PDT Station ID: [id number]
== END 2023-11-20 16:13 | disposition home or self-care (01) ==
LOC: DI 16:12
PROVIDERS: ATTEND Internal Medicine Hematology & Oncology
DX: C79.51 Secondary malignant neoplasm of bone (principal); C78.7 Secondary malignant neoplasm of liver and intrahepatic bile duct; J90 Pleural effusion, not elsewhere classified; J98.11 Atelectasis; M84.58XA Pathological fracture in neoplastic disease, other specified site, initial encounter for fracture; R18.8 Other ascites; C50.919 Malignant neoplasm of unspecified site of unspecified female breast